=== PATIENT | female | born 1990 | race Caucasian/White ===

== ENCOUNTER → 2017-06-19 | Outpatient (CLI) | payer BC ==
[~2017-06-19] MED LIST: MTR600X PO; PRENTAB26 PO
[2017-06-19 09:36] LABS: BASO % 0.2 %; BASO ABS # 0.01 K/uL (0-0.2); COMPLETE YES; EOS % 5.3 %; HEMATOCRIT 42.2 % (37-47); LYMPH % 21.4 %; LYMPH ABS # 1.18 K/uL (1.2-3.4); MEAN CORPUSCULAR HEMOGLOBIN 31.4 pg (25-34); MEAN CORPUSCULAR HGB CONC 33.4 g/dl (32-36); MEAN PLATELET VOLUME 10.3 fL (7.4-10.4); MONO % 7.8 %; NEUT % 65.3 %; PLATELET COUNT 269 K/uL (130-400); RED BLOOD COUNT 4.49 M/uL (4.2-5.4); WHITE BLOOD COUNT 5.52 K/uL (4.8-10.8)
[2017-06-19 10:04] LABS: ALT/SGPT 25 U/L (12-78); AST/SGOT 14 U/L (15-37); BLOOD UREA NITROGEN 11 mg/dl (7-18); BUN/CREATININE RATIO 14.9 (10-20); CARBON DIOXIDE 26 mmol/L (21-32); CHLORIDE 106 mmol/L (98-107); CREATININE 0.77 mg/dl (0.60-1.20); GLUCOSE 99 mg/dl (70-99); POTASSIUM 4.3 mmol/L (3.5-5.1); SODIUM 139 mmol/L (136-145)
[2017-06-19 10:15] LABS: ALB/GLOB RATIO 0.8 (0.9-2); ALKALINE PHOSPHATASE 104 U/L (45-117); CHOLESTEROL 105 mg/dl (0-200); CHOLESTEROL/HDL RATIO 2.2; HDL CHOLESTEROL 47 mg/dl; LDL CHOLESTEROL CALCULATED 33 mg/dl; TRIGLYCERIDES 127 mg/dl (0-150); VERY LOW DENSITY LIPOPROT CALC 25 mg/dl
--- NOTE | 2017-06-27 06:03 | CODING QUERY NO DIAGNOSIS ---
TREATMENT RENDERED WITHOUT A DIAGNOSIS To promote full compliance with coding requirements relating to patient care, physician participation is requested in all cases of mapping engineer uncertainty. Please assist us with providing a diagnosis/symptom for the test(s) below: A diagnosis/symptom was not documented on your Order. A valid diagnosis/symptom is required to bill all insurances. Please remember that we are unable to code a diagnosis of rule out, probable, possible, questionable, or suspected. DATE OF SERVICE: 06/19/17 Tests that require a diagnosis: * CBC W/AUTOMATED DIFFERENTIAL DIAGNOSIS: * COMP. METABOLIC PROFILE DIAGNOSIS: * LIPID PANEL DIAGNOSIS: * FSH, SERUM DIAGNOSIS: * TSH DIAGNOSIS: * LH DIAGNOSIS: Provider Signature: Date: Thank you Rizwana Sneed [facility] [employer] Information Management Once completed, please kindly fax back to [phone] For questions please call [phone]
== END | disposition home or self-care (01) ==
LOC: C.LAB 08:02
PROVIDERS: ATTEND Neuromusculoskeletal Medicine & OMM
DX: E28.2 Polycystic ovarian syndrome (principal); L65.9 Nonscarring hair loss, unspecified

== ENCOUNTER 2021-08-12 16:17 | Inpatient (IN) ==
[2021-08-12] MEDS ORDERED: BETAMETH SOD PHOS/ACETATE IA 6 MG/ML IM STA (18:10)
[2021-08-12] MEDS ORDERED: LACTATED RINGER'S 1,000 ML IV PRN (18:10)
[2021-08-12] MEDS ORDERED: OXYTOCIN 30 UNITS/500 ML BAG IV PRN (18:10)
[2021-08-12] MEDS: LACTATED RINGER'S 1,000 ML IV PRN ×2 (18:23→19:46)
[2021-08-12] MEDS ORDERED: BETAMETH SOD PHOS/ACETATE IA 6 MG/ML ONE (18:30)
[2021-08-12 19:42] LABS: Hematocrit (blood only) 40.6 % (37-47); Hemoglobin 13.9 g/dL (12.0-16.0); Mean Corpuscular Hgb Conc 34.2 g/dL (32-36); Mean Corpuscular Volume 96.4 fL (80-100); RDW Coefficient of Variation 13.1 % (11.5-14.5); RDW Standard Deviation 45.8 fL (36.4-46.3); Red Blood Count 4.21 M/uL (4.2-5.4); White Blood Count 5.76 K/uL (4.8-10.8)
[2021-08-12] MEDS ORDERED: CITRIC ACID/SODIUM CITRATE 15 ML UDC ONE (19:51)
--- NOTE | 2021-08-12 19:56 | History & Physical Report ---
Date of Service August 12, 2021 Assessment & Plan (1) Oligomenorrhea: Plan: Leisa is a 30-year-old at 35 weeks 5 days gestational age admitted for more evaluation and monitoring for new finding of oligomenorrhea. She shortly after being admitted patient was noted have persistent tachycardia with intermittent D cells. Pap presents sedation with IV fluids was initiated with no improvement in status. Recommended that we proceed with a primary low transverse Caesarean section due to persisting category 2 tracing resistant to resuscitation measures. Consents for the procedure were reviewed and signed. Patient is also COVID positive and will consult Medicine Service to help with COVID managed. Patient is afebrile with O2 saturation in the low 90s. For patient has a persistent cough and mild shortness of breath. Patient was given 1 dose of betamethasone upon admission. (2) Non-reassuring electronic monitoring tracing: (3) Encounter for supervision of normal in multigravida: Admission and Anticipated Discharge Date Admission Date: August 12, 2021 History of Present Illness Primary Care Provider: Jamil Parra DO 30yo at 35.5 weeks GA. Presented for monitoring and evaluation for new finding of Oligo with DVP of 1.19cm on US today. was previously complicated by IUGR which resolved on growth US on 08/08 with EFW at 10% and AC at 20%. Normal UAD noted on 08/08. Patient COVID positive and mildly symptomatic at present. Patient was admitted to Labor and delivery for evaluation. Maternal medicine [facility] was contacted and patient discussed. They recommended betamethasone which had already been initiated. They recommended IV fluids and monitoring overnight with repeat amniotic fluid evaluation in the morning. Recommended if patient continued to have oligomenorrhea that they would recommend completion of the steroid course followed by delivery. After the patient was placed on the monitor she was noted have tachycardia IV bolus was initiated with no improvement of tachycardia. fetus was also noted to have intermittent prolonged decels and after resuscitation noted no improvement in monitoring status I recommended that we proceed with primary Caesarean section for are nonreassuring monitoring With persistent category 2 tracing. Recommendations were reviewed with patient her partner and consents reviewed and signed. Allergies Allergy/AdvReac Type Severity Reaction Status Date / Time No Known Allergies Allergy Verified 08/12/21 18:55 Home Medications Medication Instructions Recorded Confirmed Type ondansetron HCl 4 mg tablet 4 mg PO Q6H PRN #10 tab 08/10/21 08/12/21 Rx (Zofran) ferrous sulfate 325 mg (65 mg 325 mg 3XWK 08/12/21 08/12/21 History iron) tablet (Iron (ferrous sulfate)) prenat.vits,yamila,[id number] 1 tab PO DAILY 08/12/21 08/12/21 History Patient History Medical History (Updated 08/12/21 @ 20:02 by Tyrell Shultz MD) PCOS (polycystic ovarian syndrome) Pilonidal cyst Surgical History No pertinent past surgical history Family History Father Rheumatoid arthritis Denies family history of Ovarian cancer Prostate cancer Breast cancer Colorectal cancer Social History Smoking Status: Never smoker Tobacco Type: Cigarettes Second Hand Exposure: No; Hx Alcohol Use: Yes (Not during ) Alcohol type: hard liquor Alcohol Intake Frequency: 2-4 x/Month Hx Substance Use: No Preferred Language: [place]ican Communication Ability: Effective Visual Impairment: Limited Hearing Ability: Normal Heating Engineer Required: No Beliefs That Will Affect Care: None marital status: marital status details: Jose Alberto (30) [phone] Current Living Situation: Spouse and Family Current Living Situation Comment: Spouse and son. current occupational status: employed current occupation: leasing office property management How many Children do You have: 1 Other Information That Helps Us Care for You: No Feels Safe at Home: Yes Safety Concerns: Feels Safe At This Time Childhood Exposure to Second-Hand Smoke: Yes caffeine: Yes Dental Care, Regularly: Yes Physical Activity Frequency: 3-4 Times per Week Seatbelt Use: always Sunscreen Use: Yes Assistive Devices: Contacts Physical Exam Constitutional: WD/WN, vitals as above well developed, well nourished and + well hydrated; no acute distress ENMT: external ear and nose normal, oropharynx normal Neck: trachea midline, no thyromegaly Respiratory: normal respiratory effort, lungs clear to auscultation no respiratory distress, no labored breathing and no cough Cardiovascular: RRR, no murmur, no edema Heart Sounds: normal S1 and normal S2 Gastrointestinal (Abdomen): Percussion/Palpation: abdomen soft; abdomen nontender, no guarding and abdomen not rigid Musculoskeletal: no cyanosis or clubbing, extremities motor strength 5/5 Head/Neck/Chest: + head abnormal to inspection Skin: no rashes, warm and dry normal turgor Neurologic: PERRL, EOMI, accommodation nl, no face palsy, no dysarthria normal touch/pain/proprioception Psychiatric: A+Ox3, euthymic affect Apperance: appropriately dressed and appropriately groomed Genitourinary: Manual OB Exam: + cervical dilation 3 cm, + cervical effacement 70%, + station -2 and + amniotic fluid ( Negative for rupture on evaluation) OB Exam Monitor Tracing: + external FHT monitor used, + external uterine monitor used, + category II ( persistent tachycardia and intermittent prolonged decels), + normal FHT variability and + variable decelerations Results & Data ([facility]) Vital Signs (Past 12 Hours) Vital Signs Temp Pulse Pulse Resp BP BP Pulse Ox 08/12/21 19:53 99 H 93 08/12/21 19:52 95 H 95 08/12/21 19:47 103 H 95 08/12/21 19:41 109 H 92 08/12/21 19:29 97 H 132/56 L 08/12/21 19:28 39.4 C H 97 H 18 132/56 L 08/12/21 16:40 36.9 C 18 08/12/21 16:38 80 138/79 Code Status & VTE Plan VTE Prophylaxis Plan VTE Prophylaxis will be ordered: No Coding Level of Care Code None Diagnoses Oligomenorrhea N91.5 Non-reassuring electronic monitoring tracing O36.8390 Encounter for supervision of normal in multigravida Z34.80
[2021-08-12] MEDS ORDERED: MoRPHine SULFATE PF 1 MG/ML 10 ML AMP/VIAL ONE (20:29)
[2021-08-12 20:31] LABS: Mean Platelet Volume 11.6 fL (7.4-10.4); Platelet Count 75 K/uL (130-400)
[2021-08-12] MEDS ORDERED: fentaNYL citrate 100 MCG/2 ML VIAL ONE ×2 (20:53→20:54)
[2021-08-12] MEDS ORDERED: OXYTOCIN 10 UNITS/ML VIAL ONE (20:53)
[2021-08-12 21:19] LABS: Base Excess Cord Arterial Bld -6.4 mEq/L (-9-1.8); CO2 Cord Arterial Blood 52 mmHg (39.1-73.5); HCO3 Cord Arterial Blood 21 mmol/L (19.7-28.5); PO2 Cord Arterial Blood 10 mmHg (4.1-31.7); pH Cord Arterial Blood 7.23 (7.1-7.38)
[2021-08-12 21:20] LABS: Base Excess Cord Venous Blood -4.9 mEq/L (-7.7-1.9); Cord Venous Blood HCO3 21 mmol/L (18.4-26.8); Cord Venous Blood PCO2 43 mmHg (30.4-57.2); Cord Venous Blood PO2 19 mmHg (14.1-43.3); Cord Venous Blood pH 7.31 (7.20-7.44); Oxygen Sat Cord Arterial Blood < 60.0 % (<60)
[2021-08-12 21:21] LABS: O2 Saturation Cord Venous Bld < 60.0 % (<68)
--- NOTE | 2021-08-12 21:28 | Anesthesiology Consultation ---
Date of Service August 12, 2021 Assessment & Plan Chart Review Chart Review: Acceptable Risk for Surgery Consults Requested none History Surgery Operation Date: 08/12/21 20:45 Proposed Procedures p Section in LD - Tyrell Shultz MD Height/Weight Height: 5 ft 6 in Weight: 97 kg Allergies Allergy/AdvReac Type Severity Reaction Status Date / Time No Known Allergies Allergy Verified 08/12/21 18:55 Medications Home Medications Medication Instructions Recorded Confirmed Last Taken ondansetron HCl 4 mg tablet 4 mg PO Q6H PRN #10 tab 08/10/21 08/12/21 08/11/21 09:00 (Zofran) ferrous sulfate 325 mg (65 mg 325 mg 3XWK 08/12/21 08/12/21 08/11/21 21:00 iron) tablet (Iron (ferrous sulfate)) prenat.vits,yamila,[id number] 1 tab PO DAILY 08/12/21 08/12/21 08/11/21 21:00 Active Medications Generic Name Dose Route Start Last Admin Trade Name Freq PRN Reason Stop Dose Admin Lactated Ringer's 1,000 mls @ 125 mls/hr 08/12/21 16:58 08/12/21 19:46 Lr IV 09/11/21 16:57 250 mls/hr .Q8H PRN Administration L&D Protocol Protocol Past Medical History Medical History (Updated 08/12/21 @ 20:02 by Tyrell Shultz MD) PCOS (polycystic ovarian syndrome) Pilonidal cyst Past Family History Family History Father Rheumatoid arthritis Denies family history of Ovarian cancer Prostate cancer Breast cancer Colorectal cancer Past Surgical History Surgical History No pertinent past surgical history Social History Smoking Status: Never smoker Hx Alcohol Use: Yes (Not during ) Alcohol type: hard liquor Hx Substance Use: No substance use type: does not use Physical Exam Vital Signs Last Vital Signs Temp 39.4 C H 08/12/21 19:28 Pulse 90 08/12/21 20:22 Resp 18 08/12/21 19:28 BP 132/56 L 08/12/21 19:29 Pulse Ox 95 08/12/21 20:22 Testing Laboratory Results 08/12/21 18:43 Blood Type A Positive 08/12/21 18:43 Antibody Screen NEGATIVE 08/12/21 18:43
[2021-08-12] MEDS ORDERED: ONDANSETRON INJ 2 MG/ML 2 ML VIAL ONE (21:35)
[2021-08-12] MEDS ORDERED: NALBUPHINE HCL INJ 10 MG/ML AMP IV PRN (21:45)
[2021-08-12] MEDS ORDERED: DC INTRASPINAL MORPHINE SCH (21:45)
[2021-08-12] MEDS ORDERED: NALOXONE HCL 0.08 MG in SYRINGE 1.8 ML IV PRN (21:45)
[2021-08-12] MEDS ORDERED: NALOXONE HCL 1 MG in SODIUM CHLORIDE 0.9% 1000ML 1,000 ML IV PRN (21:45)
[2021-08-12] MEDS ORDERED: NO NARCOTICS OR SEDATIVES SCH (21:45)
[2021-08-12] MEDS ORDERED: ePHEDrine sulfate 50 MG/ML AMP IV PRN ×2 (21:45→21:46)
[2021-08-12] MEDS ORDERED: MoRPHine SULFATE PF 1 MG/ML 10 ML AMP/VIAL INT SPINAL ONE (21:45)
[2021-08-12] MEDS ORDERED: SODIUM CHLORIDE 0.9% 1000ML 1,000 ML IV SCH (21:45)
[2021-08-12] MEDS ORDERED: NALOXONE HCL 0.4 MG/1 ML VIAL/CARP IV PRN (21:45)
[2021-08-12] MEDS ORDERED: LACTATED RINGER'S 500 ML IV PRN (21:45)
[2021-08-12] MEDS ORDERED: diphenhydrAMINE 50 MG/ML VIAL IV PRN (21:45)
[2021-08-12] MEDS ORDERED: HYDROmorphone INJ 2 MG/ML SYR/VIAL IV PRN (21:46)
[2021-08-12] MEDS ORDERED: ATROPINE SULFATE 0.1 MG/ML 10ML SYR IV PRN (21:46)
[2021-08-12] MEDS ORDERED: fentaNYL citrate 100 MCG/2 ML VIAL IV PRN (21:46)
[2021-08-12] MEDS ORDERED: HYDROCORTISONE ACETATE 25 MG SUPP PR PRN (21:49)
[2021-08-12] MEDS ORDERED: BENZOCAINE 20% AER SPR 82.5 GM CAN EXT PRN (21:49)
[2021-08-12] MEDS ORDERED: SENNA 8.6 MG TAB PO PRN (21:49)
[2021-08-12] MEDS ORDERED: SUPERCREAM 0.870% 15 GM JAR EXT PRN (21:49)
[2021-08-12] MEDS ORDERED: DIPHTHERIA/TETANUS/PERTUSSIS 0.5 ML SYR/VIAL IM ONE (21:49)
[2021-08-12] MEDS ORDERED: MAGNESIUM HYDROXIDE SUSP 30 ML UDC PO PRN (21:49)
[2021-08-12] MEDS ORDERED: KETOROLAC 30 MG/ML VIAL IV PRN (21:49)
--- NOTE | 2021-08-12 22:02 | Post Operative Brief Note ---
PG Immediate Post Op with CF Date of Surgery August 12, 2021 Pre & Post Diagnosis Operation Date: 08/12/21 20:45 Pre-Op Diagnosis: Oligohydramnios Non Reassuring heart tones Post-Op Diagnosis: Oligohydramnios Non Reassuring heart tones Delivery of live female child at 2050 I identified the patient and participated in the time-out.: Yes Procedure Operation Date: 08/12/21 20:45 Actual Procedures p Section in LD - Tyrell Shultz MD Surgeon Tyrell Shultz MD Coroner Forensic Technician Dr Henriquez Estimated Blood Loss 700 Findings Consistent with Post-Op Diagnosis Specimens Specimen Description: Placeta-exam cord blood cord blood gases Drains Laureano Catheter
[2021-08-12] MEDS: LACTATED RINGER'S 1,000 ML IV SCH (22:17)
--- NOTE | 2021-08-12 22:24 | Hospitalist Consultation ---
Date of Consultation August 12, 2021 Assessment & Plan (1) Pneumonia due to COVID-19 virus: Previously well 30 yo F post-op from emergent C/S, seen in consultation for symptomatic COVID19 infection. COVID19 Pneumonia, Moderate - moderate disease: - CXR with L>R infiltrates in line with COVID19 diagnosis. - no persistent oxygen requirement, however O2 sats hover in 92-94 range, drop to high 80s and return to normal. Unsure if this correlates with exertion/c oughing/speaking. - thrombocytopenia likely secondary to infection. CMP pending. - would qualify for monoclonal antibodies based on status and mild to moderate disease - High risk for DVT/PE formation in setting of + COVID. CTA ordered for evaluation of PE given persistent sinus Tach and high risk. if negative, Given mild/moderate disease and being immediately post-op, can keep SCDs and encourage ambulation. If worsening sx without PE, will likely require heparin for high risk prophylaxis. - Fever likely secondary to COVID19, but differential includes endometritis/postop fever etc. will continue to monitor. - Supportive care: - incentive spirometry - guaifensin - tylenol for fevers Will continue to follow. Else per primary OB team. DVT ppx: SCDs FEN/GI: Regular OB diet Code Status: Full Dispo: negative pressure OB room (2) S/P : (3) Thrombocytopenia: Supervising Physician Co-Signing Physician Notes Attending addendum: I have supervised the medical residents activities, and agree with the H&P unless as otherwise noted. Assessment and Plan: Pneumonia due to COVID-19 virus- Multifocal pneumonia on chest x-ray In the peripartum state would target pulse ox to be 94-95%, with oxygen supplementation as needed CT angiography PE protocol Incentive spirometry Guaifenesin extended release 1200 mg p.o. twice daily Acetaminophen 650 mg p.o. every 6 hours as needed mild pain or fever Follow thrombocytopenia serial laboratories, further management depends upon follow-up laboratories Xopenex high flow nebulizer every 2 hours as needed if symptoms warrant Further management suggestions as studies result History of Present Illness Reason for Consultation: symptomatic COVID19 Requesting Physician: Tyrell Shultz MD Attending Physician: Renny Ferrell History of Present Illness Leisa is a 30 yo F at 35w5d admitted for monitoring of oligomenorrhea, now s/p for non-reassuring heart tracings. Consult from OB requested for management of COVID19 infection. She states she started feeling chills and somewhat sick approximately 4 days ago, was seen by her physician who ordered a covid test, which was positive on 08/08. She's had a cough for a few months and denies much change in that in the last few days. She has a 1/2 pack x 10 year smoking history but denies smoking during . She does attest to having on and off chills in the past few days, headaches, but denies any fevers (until earlier this evening). She has not received [id number], has received the influenza vaccine. She denies any hx of pulmonary disease, use of inhalers, other chronic medical conditions. Says hx of anemia is new, was started on iron tab 3x/week. no hx of thrombocytopenia/bleeding disorders. COVID19 workup ordered including: CXR, CMP, Troponin. Vitals and chart reviewed. Allergies Allergy/AdvReac Type Severity Reaction Status Date / Time No Known Allergies Allergy Verified 08/12/21 18:55 Home Medications Medication Instructions Recorded Confirmed Type ondansetron HCl 4 mg tablet 4 mg PO Q6H PRN #10 tab 08/10/21 08/12/21 Rx (Zofran) ferrous sulfate 325 mg (65 mg 325 mg 3XWK 08/12/21 08/12/21 History iron) tablet (Iron (ferrous sulfate)) prenat.vits,yamila,[id number] 1 tab PO DAILY 08/12/21 08/12/21 History Patient History Medical History (Updated 08/13/21 @ 08:32 by Tyrell Shultz MD) PCOS (polycystic ovarian syndrome) Pilonidal cyst Surgical History (Updated 08/12/21 @ 23:30 by Shanika Ramirez MD) No pertinent past surgical history Family History Father Rheumatoid arthritis Denies family history of Ovarian cancer Prostate cancer Breast cancer Colorectal cancer Social History (Updated 08/12/21 @ 23:25 by Shanika Ramirez MD) Smoking Status: Former smoker Tobacco Type: Cigarettes packs per day: 0.5; Years Smoked: 11; Second Hand Exposure: No; Hx Alcohol Use: Yes (Not during ) Alcohol type: hard liquor Alcohol Intake Frequency: 2-4 x/Month Hx Substance Use: No Preferred Language: Serbian Communication Ability: Effective Visual Impairment: Limited Hearing Ability: Normal Bath Solution Maker Required: No Beliefs That Will Affect Care: None marital status: marital status details: Jose Alberto (30) [phone] Current Living Situation: Spouse and Family Current Living Situation Comment: Spouse and son. 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 How many Children do You have: 1 Other Information That Helps Us Care for You: No Feels Safe at Home: Yes Safety Concerns: Feels Safe At This Time Childhood Exposure to Second-Hand Smoke: Yes caffeine: Yes Dental Care, Regularly: Yes Physical Activity Frequency: 3-4 Times per Week Seatbelt Use: always Sunscreen Use: Yes Assistive Devices: None Review of Systems Constitutional: + fever, + chills and + malaise; no sweats, no body aches and no weakness Respiratory: + cough; no dyspnea on exertion and no pain on inspiration Cardiovascular: no chest pain and no palpitations Gastrointestinal: + nausea; no vomiting Neurologic: + headache(s) Physical Exam Physical Exam: Constitutional: obese, in no apparent distress, sitting comfortably in bed. Eyes: EOMI, pupils equal and reactive bilaterally, no scleral icterus Cardiac: tachycardic, regular rhythm, no murmurs, gallops or rubs. Normal S1, S2 Pulm:decreased breath sounds in left compared to right lung, poor inspiratory effort, no focal wheezing, crackles. Some rhonchorous breath sounds that improve with coughing. Results & Data Results & Data ([facility]) Vital Signs (Past 12 Hours) Vital Signs Temp Pulse Pulse Resp BP BP Pulse Ox 08/12/21 22:23 93 H 94 08/12/21 22:20 112 H 94 08/12/21 22:16 106 H 130/61 94 08/12/21 22:15 103 H 92 08/12/21 22:11 111 H 86 L 08/12/21 22:10 112 H 94 08/12/21 22:06 101 H 145/60 H 08/12/21 22:05 100 H 94 08/12/21 22:00 95 H 132/65 86 L 08/12/21 21:57 102 H 169/74 H 94 08/12/21 21:55 95 H 90 08/12/21 21:52 95 H 93 08/12/21 21:50 92 H 96 08/12/21 21:45 102 H 86 L 08/12/21 21:44 88 164/60 H 08/12/21 21:40 37.2 C 94 H 18 169/74 H 92 08/12/21 20:22 90 95 08/12/21 20:17 97 H 93 08/12/21 20:16 92 H 94 08/12/21 20:12 89 93 08/12/21 20:11 100 H 94 08/12/21 20:07 89 94 08/12/21 20:05 92 H 94 08/12/21 20:02 89 93 08/12/21 19:59 94 H 94 08/12/21 19:57 93 H 94 08/12/21 19:53 99 H 93 08/12/21 19:52 95 H 95 08/12/21 19:47 103 H 95 08/12/21 19:41 109 H 92 08/12/21 19:29 97 H 132/56 L 08/12/21 19:28 39.4 C H 97 H 18 132/56 L 08/12/21 16:40 36.9 C 18 08/12/21 16:38 80 138/79 Laboratory Results Laboratory Results WBC 5.76 K/uL (4.8-10.8) 08/12/21 18:43 RBC 4.21 M/uL (4.2-5.4) 08/12/21 18:43 Hgb 13.9 g/dL (12.0-16.0) 08/12/21 18:43 Hct 40.6 % (37-47) 08/12/21 18:43 MCV 96.4 fL (80-100) 08/12/21 18:43 MCH 33.0 pg (25-34) 08/12/21 18:43 MCHC 34.2 g/dL (32-36) 08/12/21 18:43 RDW Std Deviation 45.8 fL (36.4-46.3) 08/12/21 18:43 RDW Coeff of [place] 13.1 % (11.5-14.5) 08/12/21 18:43 Plt Count 75 K/uL (130-400) L 08/12/21 18:43 MPV 11.6 fL (7.4-10.4) H 08/12/21 18:43 Cord ABG pH 7.23 (7.1-7.38) 08/12/21 20:51 Cord ABG pCO2 52 mmHg (39.1-73.5) 08/12/21 20:51 Cord ABG pO2 10 mmHg (4.1-31.7) 08/12/21 20:51 Cord ABG HCO3 21 mmol/L (19.7-28.5) 08/12/21 20:51 Cord ABG Base Excess -6.4 mEq/L (-9-1.8) 08/12/21 20:51 Cord ABG O2 Sat < 60.0 % (<60) 08/12/21 20:51 Cord VBG pH 7.31 (7.20-7.44) 08/12/21 20:51 Cord VBG pCO2 43 mmHg (30.4-57.2) 08/12/21 20:51 Cord VBG pO2 19 mmHg (14.1-43.3) 08/12/21 20:51 Cord VBG HCO3 21 mmol/L (18.4-26.8) 08/12/21 20:51 Cord VBG Base Excess -4.9 mEq/L (-7.7-1.9) 08/12/21 20:51 Cord VBG O2 Sat < 60.0 % (<68) 08/12/21 20:51 Barometric Pressure 731.5 mm/Hg 08/12/21 20:51 Barometric Pressure 731.5 mm/Hg 08/12/21 20:51 Blood Gas Comments A 08/12/21 20:51 Blood Gas Comments INFANT A 08/12/21 20:51 Blood Type A Positive 08/12/21 18:43 Antibody Screen NEGATIVE 08/12/21 18:43 Impressions Chest X-Ray 08/12/21 22:09 XR chest 1V portable CLINICAL HISTORY: hypoxia, COVID -19 TECHNIQUE: Single frontal radiograph of the chest was obtained. Comparison: None available at the time of this dictation. FINDINGS: No lines and tubes are seen. The cardiomediastinal silhouette is normal. Multifocal airspace opacities are seen, left greater than right. No evidence of pleural effusion or pneumothorax. IMPRESSION: Multifocal airspace opacities compatible with history of viral pneumonia. ACT 112: Negative or not required by law. Electronically signed by: Piotr Lopez M.D. 08/12/2021 10:29 PM Resident Activity Tracking Resident Involvement: Resident Care Provided Care Provided: Adult Hospital Medicine
--- NOTE | 2021-08-12 22:30 | XRay Report ---
XR chest 1V portable CLINICAL HISTORY: hypoxia, COVID -19 TECHNIQUE: Single frontal radiograph of the chest was obtained. Comparison: None available at the time of this dictation. FINDINGS: No lines and tubes are seen. The cardiomediastinal silhouette is normal. Multifocal airspace opacitie s are seen, left greater than right. No evidence of pleural effusion or pneumothorax. IMPRESSION: Multifocal airspace opacities compatible with history of viral pneumonia. ACT 112: Negative or not required by law. Electronically signed by: Piotr Lopez M.D. 08/12/2021 10:29 PM
--- NOTE | 2021-08-12 22:59 | Operative Report (OR) ---
DATE OF PROCEDURE: 08/12/2021 PROCEDURE: Primary low transverse section. PREOPERATIVE DIAGNOSES: 1. Single at 35 weeks 5 days gestational age. 2. Oligohydramnios. 3. Growth restriction. 4. Persistent category 2 tracing, nonreassuring monitoring. 5. Symptomatic COVID positive. POSTOPERATIVE DIAGNOSES: 1. Single at 35 weeks 5 days gestational age. 2. Oligohydramnios. 3. Growth restriction. 4. Persistent category 2 tracing, nonreassuring monitoring. 5. Symptomatic COVID positive. 6. Status post procedure. ESTIMATED BLOOD LOSS: 700 mL. DRAINS: Laureano catheter. FLUIDS: Continuous lactated Ringer. URINE OUTPUT: Per Laureano catheter. COMPLICATIONS: None. FINDINGS: Viable female infant with weight and Apgars pending. INDICATIONS: Leisa is a 30-year-old G2, P1, admitted at 35 weeks 5 days gestational age after being sent from clinic for evaluation and monitoring for new diagnosis of oligohydramnios in the setting of IUGR. The patient was noted to have tachycardia after being placed on the monitor. She was given an IV bolus and resuscitation measures were initiated. At first, it appeared that some response was occurring. However, after continued monitoring, heart rate was noted to go back up to the 180s. Intermittent prolonged decels were also noted and at that time, we discussed emergent delivery for persistent category 2 tracing resistant to resuscitation measures. The patient was agreeable to the delivery plan, and consents for a primary low transverse section were reviewed and signed. DESCRIPTION OF PROCEDURE: The patient was taken to the operating room after consents were ensured. Upon presentation, she was properly identified. Spinal anesthesia was obtained without difficulty. The patient was then prepped and draped in normal sterile fashion. Preprocedure timeout was performed. A Pfannenstiel incision was then made with a knife. This was carried down to underlying fascia with the Bovie. The fascia was then nicked at the midline with a knife and extended laterally in each direction with pickleonides and Jorge scissors. The superior aspect of the fascia was grasped with Kochers x2, elevated off the underlying rectus muscles using blunt dissection. The inferior aspect of the fascia was then grasped with Kochers x2, elevated off the underlying rectus muscles using blunt dissection. The midline was then entered bluntly, placed on stretch to provide adequate room for delivery. A bladder blade was inserted. A bladder flap was created. A low transverse uterine incision was then initiated with a knife and then the uterine cavity was then entered bluntly and placed on stretch to provide adequate room for delivery. Head of the was noted to be in cephalic position, delivered through the hysterotomy without difficulty. Body and shoulders quickly followed. was noted to have good tone upon delivery and an attempt at delayed cord clamping was performed, although the was not noted to be vigorous and the cord was double clamped and cut. taken over to the waiting nursery staff. A cord segment and cord blood was obtained. Attention was then turned to delivery of the placenta, which was delivered intact, 3-vessel cord, gentle cord traction and uterine massage. The uterus was exteriorized. Several passes were made to remove any remaining membranes with a dry lap. The hysterotomy was then reapproximated with 0 Vicryl continuous running locked stitch. A second imbricating layer was performed. Several [id number]-[id number]-[id number] stitches were needed to provide adequate hemostasis. The posterior cul-de-sac was then cleaned of clots and debris. The uterus was returned to the maternal abdomen. Right and left paracolic gutters were cleaned of clots and debris, and the hysterotomy was then reinspected and noted to be hemostatic. The space of Retzius, subcutaneous and muscle layers were all inspected and noted to be hemostatic. The fascia was then reapproximated with 0 Vicryl continuous running stitch. Subcutaneous layers were reapproximated with 2-0 plain in a continuous running stitch. The skin was reapproximated with 3-0 Vicryl in a subcuticular stitch with a Manuelito needle. Needle, sponge, and instrument counts were correct at the completion of the case. Both mother and were stable in the immediate post-delivery period. Job ID: [id number] [facility]
[2021-08-12] MEDS: KETOROLAC 30 MG/ML VIAL IV PRN (23:46)
[2021-08-12 23:49] LABS: Alanine Aminotransferase 41 (12-78); Albumin Level 1.8 gm/dl (3.4-5.0); Aspartate Aminotransferase 63 U/L (15-37); Blood Urea Nitrogen 9 mg/dl (7-18); Calcium 7.5 mg/dl (8.5-10.1); Carbon Dioxide 23 mmol/L (21-32); Chloride 104 mmol/L (98-107); Creatinine Clr Calc Pharmacy 177.2 ml/min; Est GFR (African American) 145.7 ml/min; Est GFR (Non-African American) 125.7 ml/min; Glucose 113 mg/dl (70-99); Potassium 3.4 mmol/L (3.5-5.1); Sodium 135 mmol/L (136-145)
[2021-08-12] MEDS: OXYTOCIN 20 UNITS in LACTATED RINGER'S 1,000 ML IV SCH (23:50)
[2021-08-12 23:54] LABS: Albumin Globulin Ratio 0.5 (0.9-2); Alkaline Phosphatase 313 U/L (45-117); Bilirubin,Total 0.3 mg/dl (0.2-1); Globulin 3.3 gm/dl (2.5-4.0); Total Protein 5.1 gm/dl (6.4-8.2); Troponin I < 0.015 ng/ml (0-0.045)
--- NOTE | 2021-08-13 00:59 | Anesthesiology Progress Note ---
Date of Service August 13, 2021 Anesthesia Post Procedure Vital Signs Vital Signs: Temp Pulse Pulse Resp BP BP Pulse Ox 08/13/21 00:00 92 H 91 08/12/21 23:55 94 H 91 08/12/21 23:51 85 123/60 08/12/21 23:50 87 89 L 08/12/21 23:47 98 H 93 08/12/21 23:45 91 H 89 L 08/12/21 23:40 97 H 94 08/12/21 23:38 94 H 94 08/12/21 23:35 94 H 89 L 08/12/21 23:31 110 H 106/56 L 08/12/21 23:30 109 H 92 08/12/21 23:25 101 H 91 08/12/21 23:20 98 H 91 08/12/21 23:16 100 H 88 L 08/12/21 23:15 96 H 93 08/12/21 23:11 96 H 122/65 08/12/21 23:10 99 H 93 08/12/21 23:05 102 H 93 08/12/21 23:00 99 H 93 08/12/21 22:56 98 H 137/67 08/12/21 22:55 96 H 91 08/12/21 22:51 113 H 92 08/12/21 22:50 110 H 93 08/12/21 22:46 115 H 133/70 08/12/21 22:45 111 H 94 08/12/21 22:40 109 H 92 08/12/21 22:39 112 H 94 08/12/21 22:37 117 H 128/68 08/12/21 22:35 114 H 91 08/12/21 22:33 113 H 91 08/12/21 22:30 115 H 96 08/12/21 22:28 117 H 85 L 08/12/21 22:25 108 H 93 08/12/21 22:23 93 H 94 08/12/21 22:20 112 H 94 08/12/21 22:16 106 H 130/61 94 08/12/21 22:15 103 H 92 08/12/21 22:11 111 H 86 L 08/12/21 22:10 112 H 94 08/12/21 22:06 101 H 145/60 H 08/12/21 22:05 100 H 94 08/12/21 22:00 95 H 132/65 86 L 08/12/21 21:57 102 H 169/74 H 94 08/12/21 21:55 95 H 90 08/12/21 21:52 95 H 93 08/12/21 21:50 92 H 96 08/12/21 21:45 102 H 86 L 08/12/21 21:44 88 164/60 H 08/12/21 21:40 37.2 C 94 H 18 169/74 H 92 08/12/21 20:22 90 95 08/12/21 20:17 97 H 93 08/12/21 20:16 92 H 94 08/12/21 20:12 89 93 08/12/21 20:11 100 H 94 08/12/21 20:07 89 94 08/12/21 20:05 92 H 94 08/12/21 20:02 89 93 08/12/21 19:59 94 H 94 08/12/21 19:57 93 H 94 08/12/21 19:53 99 H 93 08/12/21 19:52 95 H 95 08/12/21 19:47 103 H 95 08/12/21 19:41 109 H 92 08/12/21 19:29 97 H 132/56 L 08/12/21 19:28 39.4 C H 97 H 18 132/56 L 08/12/21 16:40 36.9 C 18 08/12/21 16:38 80 138/79 Pain Intensity Back: Pain Intensity: 7 Transfer of Care Handoff Completed per policy Notes Mental Status: alert / awake / arousable and participated in evaluation Patient Amnestic to Procedure: Yes Nausea / Vomiting: adequately controlled Pain: adequately controlled Airway Patency, RR, SpO2: stable & adequate BP & HR: stable & adequate Hydration State: stable & adequate Neuraxial Anesthesia: was administered and sensory block is resolving Anesthetic Complications: no major complications apparent
[2021-08-13] MEDS ORDERED: OPTIRAY 320 125ml IV ONE (01:05)
[2021-08-13] MEDS: ALBUTEROL HFA 8 GM INHALER INH SCH ×3 (01:30→07:01)
[2021-08-13] MEDS: ONDANSETRON INJ 2 MG/ML 2 ML VIAL IV PRN ×2 (01:36→08:38)
[2021-08-13] MEDS: KETOROLAC 30 MG/ML VIAL IV PRN (05:25)
[2021-08-13 06:50] LABS: Basophils # (auto) 0.01 K/uL (0-0.2); Basophils % (auto) 0.1 %; Hematocrit (blood only) 26.8 % (37-47); Hemoglobin 9.3 g/dL (12.0-16.0); Immature Granulocytes # (auto) 0.02 K/uL (0.00-0.02); Immature Granulocytes % (auto) 0.3 %; Lymphocytes # (auto) 0.43 K/uL (1.2-3.4); Lymphocytes % (auto) 5.5 %; Mean Corpuscular Hemoglobin 33.5 pg (25-34); Mean Corpuscular Hgb Conc 34.7 g/dL (32-36); Mean Corpuscular Volume 96.4 fL (80-100); Mean Platelet Volume 10.8 fL (7.4-10.4); Monocytes # (auto) 0.14 K/uL (0.11-0.59); Monocytes % (auto) 1.8 %; Neutrophils # (auto) 7.15 K/uL (1.4-6.5); Neutrophils % (auto) 92.3 %; Platelet Count 87 K/uL (130-400); RDW Coefficient of Variation 13.3 % (11.5-14.5); RDW Standard Deviation 46.6 fL (36.4-46.3); Red Blood Count 2.78 M/uL (4.2-5.4); White Blood Count 7.75 K/uL (4.8-10.8)
--- NOTE | 2021-08-13 08:26 | CT Scan Report ---
CT angio chest w con CLINICAL HISTORY: Chest pain and shortness of breath. Covid positive. Evaluate for pulmonary embolus COMPARISON STUDY: Portable chest from 08/12/2021 CT DOSE: 649.44 mGy.cm TECHNIQUE: CT Angio of the chest was performed.followed by image post processing with coronal, and s agittal MIP reformats. Contrast Volume: Optiray 320, 119 ml FINDINGS: Vasculature: There is homogeneous perfusion of the pulmonary vasculature bilaterally. No intraluminal filling defects or evidence for pulmonary embolus is seen. Airway: The airway is clear. No endobronchial lesion is identified. Lungs: Extensive groundglass opacities are present throughout both lungs characteristic of a viral ty pe pneumonitis and Covid 19 pneumonia. The lungs are otherwise clear of confluent alveolar opacities, air bronchograms or pulmonary nodules. Pleura: There is no evidence for pleural effusion. There is no evidence for pneumothorax. Mediastinum: There is no evidence for pathologic adenopathy. The heart size is within normal limits. The thoracic aorta is within normal limits. There is no evidence for pericardial effusion. Upper abdomen:There is free intraperitoneal air under the hemidiaphragm anterior to the liver. The fi ndings are characteristic of perforated viscus. Follow-up CT of the abdomen and pelvis is recommended . Osseous structures: There is no acute osseous pathology. Impression: 1. No CTA evidence for pulmonary embolus. 2. Extensive groundglass opacities are present throughout both lungs characteristic of a viral type p neumonitis and Covid 19 pneumonia. 3. Free intraperitoneal air under the hemidiaphragms anterior to the liver characteristic of a bowel perforation. Follow-up CT of the abdomen and pelvis is recommended. These results were provided on the initial reading. ACT 112: Positive. There are findings on this exam that require communication between the performing entity and the patient following Patient Test Result Information Act ([place] Act 112) guidelines. Electronically signed by: Scout Gleason M.D. 08/13/2021 8:24 AM
[2021-08-13] MEDS: PRENATAL VITAMIN 1 TAB PO SCH (08:37)
[2021-08-13] MEDS: SIMETHICONE 80 MG CHEW PO SCH ×4 (08:38→21:09)
[2021-08-13] MEDS: FERROUS SULFATE 325 MG TAB PO SCH (08:38)
[2021-08-13] MEDS: DOCUSATE SODIUM 100 MG CAP PO SCH ×2 (08:38→21:10)
--- NOTE | 2021-08-13 08:38 | Obstetrical Progress Note ---
Date of Service August 13, 2021 Assessment & Plan (1) Pneumonia due to COVID-19 virus: 30yo day 1 s/p pLTCS. Meeting post operative goals. Mildly symptomatic from COVID. Continue COVID management per Medicine team. Noted to have low platelets and mildly elevated liver enzymes yesterday. Liver enzymes below threshold for PIH diagnosis and likely COVID related. Had a few elevated BP yesterday but normal since delivery. Platelets mildly improved today. Will order morning CMP and CBC tomorrow. CTA was read as air under diaphragm. Patient is post and free air under diaphragm would be expected. Not signs or symptoms of bowel perforation and no concern for bowel injury during surgery. Will continue to monitor. (2) S/P : (3) Encounter for care and examination after delivery: Subjective Ambulation: limited ambulation (Laureano in place) Voiding: no voiding problems Passing Gas:: Yes Diet Tolerance:: clear liquids Lochia:: Small Current Pain Level(1-10): 2 Mild COVID symptoms. Denies PIH symptoms Physical Exam Constitutional WD/WN, vitals as above Respiratory normal respiratory effort; no respiratory distress and no labored breathing Gastrointestinal (Abdomen) Inspection/Auscultation: abdomen normal to inspection; abdomen not distended Percussion/Palpation: abdomen soft; abdomen nontender, no guarding and abdomen not rigid Genitourinary OB Exam Abdomen: + fundal height Fundus: + firm and + relation to umbilicus (Below); not tender or not boggy Results & Data ([facility]) Vital Signs (Past 12 Hours) Vital Signs Temp Pulse Pulse Resp BP BP Pulse Ox 08/13/21 06:36 16 96 08/13/21 06:25 18 96 08/13/21 04:25 36.6 C 76 18 90/54 L 94 08/13/21 03:15 16 96 08/13/21 02:18 36.9 C 86 18 109/68 96 08/13/21 01:00 36.9 C 91 H 18 106/68 96 08/13/21 00:00 92 H 91 08/12/21 23:55 94 H 91 08/12/21 23:51 85 123/60 08/12/21 23:50 87 89 L 08/12/21 23:47 98 H 93 08/12/21 23:45 91 H 89 L 08/12/21 23:40 97 H 94 08/12/21 23:38 94 H 94 08/12/21 23:35 94 H 89 L 08/12/21 23:31 110 H 106/56 L 08/12/21 23:30 109 H 92 08/12/21 23:25 101 H 91 08/12/21 23:20 98 H 91 08/12/21 23:16 100 H 88 L 08/12/21 23:15 96 H 93 08/12/21 23:11 96 H 122/65 08/12/21 23:10 99 H 93 08/12/21 23:05 102 H 93 08/12/21 23:00 99 H 93 08/12/21 22:56 98 H 137/67 08/12/21 22:55 96 H 91 08/12/21 22:51 113 H 92 08/12/21 22:50 110 H 93 08/12/21 22:46 115 H 133/70 08/12/21 22:45 111 H 94 08/12/21 22:40 109 H 92 08/12/21 22:39 112 H 94 08/12/21 22:37 117 H 128/68 08/12/21 22:35 114 H 91 08/12/21 22:33 113 H 91 08/12/21 22:30 115 H 96 08/12/21 22:28 117 H 85 L 08/12/21 22:25 108 H 93 08/12/21 22:23 93 H 94 08/12/21 22:20 112 H 94 08/12/21 22:16 106 H 130/61 94 08/12/21 22:15 103 H 92 08/12/21 22:11 111 H 86 L 08/12/21 22:10 112 H 94 08/12/21 22:06 101 H 145/60 H 08/12/21 22:05 100 H 94 08/12/21 22:00 95 H 132/65 86 L 08/12/21 21:57 102 H 169/74 H 94 08/12/21 21:55 95 H 90 08/12/21 21:52 95 H 93 08/12/21 21:50 92 H 96 08/12/21 21:45 102 H 86 L 08/12/21 21:44 88 164/60 H 08/12/21 21:40 37.2 C 94 H 18 169/74 H 92
[2021-08-13] MEDS: OXYTOCIN 20 UNITS in LACTATED RINGER'S 1,000 ML IV SCH (08:52)
[2021-08-13] MEDS: LACTATED RINGER'S 1,000 ML IV SCH (08:59)
[2021-08-13 09:19] LABS: Albumin Globulin Ratio 0.5 (0.9-2); Albumin Level 1.7 gm/dl (3.4-5.0); BUN Creatinine Ratio 20.5 (10-20); Bilirubin,Total 0.4 mg/dl (0.2-1); Calcium 7.7 mg/dl (8.5-10.1); Creatinine Clr Calc Pharmacy 156.9 ml/min; Est GFR (Non-African American) 120.8 ml/min; Globulin 3.4 gm/dl (2.5-4.0); Total Protein 5.1 gm/dl (6.4-8.2)
[2021-08-13] MEDS: guaiFENesin 600 MG TABCR PO SCH ×2 (10:09→21:10)
[2021-08-13] MEDS ORDERED: ALBUTEROL HFA 8 GM INHALER INH PRN (11:10)
[2021-08-13] MEDS ORDERED: diphenhydrAMINE 50 MG/ML VIAL IV PRN (15:45)
[2021-08-13] MEDS ORDERED: PROMETHAZINE HCL 25 MG in SODIUM CHLORIDE 0.9% 50 ML IV PRN (15:45)
[2021-08-13] MEDS ORDERED: diphenhydrAMINE Capsule 25 MG CAP PO PRN (15:45)
[2021-08-13] MEDS: oxyCODONE/ACETAMINOPHEN 5mg/325mg TAB PO PRN (16:46)
[2021-08-13] MEDS ORDERED: AMMONIA, AROMATIC INHAL 1 EA AMP INH ONE (16:49)
[2021-08-13] MEDS ORDERED: bisacodyL 5 MG TABEC PO SCH (20:00)
--- NOTE | 2021-08-13 20:27 | Billing Data ---
Date of Service August 13, 2021 Coding Level of Care Code 30124 Inpt Consult Level 3
[2021-08-13] MEDS: IBUPROFEN 600 MG TAB PO PRN (21:11)
--- NOTE | 2021-08-13 21:25 | Hospitalist Progress Note ---
Date of Service August 13, 2021 Assessment & Plan (1) Pneumonia due to COVID-19 virus: Plan: b/l pneumonia on CTA chest. moderate amount of infiltrates but fortunately she remains stable from a pulmonary standpoint -- o2 sats >95% in RA, mild cough only, etc. Continue pulmonary toilet - encouraged flutter valve and incentive spirometry use. Continue mucinex. If any developing hypoxia would then be candidate for dexamethasone & Remdesivir. (2) S/P : Plan: POD #1 s/p . Doing well from ob standpoint. (3) Thrombocytopenia: Plan: Likely 2nd to COVID illness. This is typically self-limiting and resolves within a week or two. Repeat CBC am for stability. (4) Abnormal LFTs: Plan: Likely 2nd to COVID illness. Like #3 it is typically self-limiting. Repeat LFTs in am for stability. (5) DVT prophylaxis: Plan: SCDs for now. Low threshold for chemical DVT proph (lovenox). Plan: Will continue to follow. Admission and Anticipated Discharge Date Admission Date: August 12, 2021 Subjective pt reports mild cough but no dyspnea main complaint is that of fatigue no headache no myalgias or arthralgias mild abdominal bloating but no nausea/emesis/diarrhea COVID symptoms started earlier this week - perhaps Sunday with chills Review of Systems Review of Systems: gen - no chills HEENT - no loss of taste or smell CV - no chest pain Physical Exam Physical Exam: gen - obese, NAD, occasional cough skin - mild pallor heart - RRR, s1 s2, no murmur lungs - mild bibasilar rales, CTA b/l otherwise; no increased work of breathing abd - mildly distended, BS+ but diminished, NT, no HSM ext - trace edema b/l, pulses 2+ b/l Results & Data Results & Data ([facility]) Vital Signs (Past 12 Hours) Vital Signs Temp Pulse Pulse Resp BP BP Pulse Ox 08/13/21 19:24 37.6 C H 94 H 18 100/64 97 08/13/21 16:15 36.6 C 86 18 92/60 L 97 08/13/21 15:50 18 97 08/13/21 14:46 16 96 08/13/21 13:46 16 97 08/13/21 12:44 18 99 08/13/21 12:15 36.5 C 89 18 91/60 L 99 08/13/21 11:48 18 100 08/13/21 10:45 18 100 08/13/21 09:45 18 100 Laboratory Results Laboratory Results - last 24 hr 08/12/21 08/13/21 08/13/21 23:12 06:25 08:28 WBC 7.75 RBC 2.78 L Hgb 9.3 L D Hct 26.8 L MCV 96.4 MCH 33.5 MCHC 34.7 RDW Std Deviation 46.6 H RDW Coeff of [place] 13.3 Plt Count 87 L MPV 10.8 H Immature Gran % (Auto) 0.3 Neut % (Auto) 92.3 Lymph % (Auto) 5.5 [place] % (Auto) 1.8 Eos % (Auto) 0.0 Baso % (Auto) 0.1 Neut # (Auto) 7.15 H Lymph # (Auto) 0.43 L [place] # (Auto) 0.14 Eos # (Auto) 0.00 Baso # (Auto) 0.01 Immature Gran # (Auto) 0.02 Sodium 135 L 135 L Potassium 3.4 L 4.0 D Chloride 104 101 Carbon Dioxide 23 26 Anion Gap 8.0 8.0 BUN 9 13 Creatinine 0.54 L 0.61 Est Cr Clr Drug Dosing 177.2 156.9 Est GFR ( Amer) 145.7 140.0 Est GFR (Non-Af Amer) 125.7 120.8 BUN/Creatinine Ratio 16.0 20.5 H Glucose 113 H 118 H Calcium 7.5 L 7.7 L Total Bilirubin 0.3 0.4 AST 63 H 48 H ALT 41 35 Alkaline Phosphatase 313 H 271 H Troponin I < 0.015 Total Protein 5.1 L 5.1 L Albumin 1.8 L 1.7 L Globulin 3.3 3.4 Albumin/Globulin Ratio 0.5 L 0.5 L PG Care Time/CCT Total # of Minutes Spent Total Time Spent with Patient: Total time spent is greater than 50% in coordination of care (as documented) at patient's floor/unit and/or counseling patient: Coding Level of Care Code 63321 Subseq Hosp Care Lvl 1 Diagnoses Pneumonia due to COVID-19 virus U07.1; J12.82 S/P Z98.891 Thrombocytopenia D69.6 Abnormal LFTs R79.89 DVT prophylaxis Z29.9
[2021-08-14] MEDS ORDERED: SODIUM CHLORIDE 0.9% 1000ML 500 ML IV ONE (00:22)
--- NOTE | 2021-08-14 00:32 | Obstetrical Progress Note ---
Date of Service August 14, 2021 Assessment & Plan Admission and Anticipated Discharge Date Admission Date: August 12, 2021 Subjective Notified by RN that she has contacted medicine team re: pt's vitals showing pulse 90-100s, BPs 90s/50s. O2 saturation 93% room air. Patient is eating/drinking ok. Laureano was removed this afternoon, 400cc urine output since, and had >30cc/hr throughout the day. Scant vaginal lochia, no bleeding from incision. Will obtain stat CBC/CMP to r/o acute volume loss/hemorrhage, give 500cc bolus. However, I think this is more likely related to acute COVID illness and will look to their recommendations as well. Results & Data ([facility]) Vital Signs (Past 12 Hours) Vital Signs Temp Pulse Resp BP BP Pulse Ox 08/13/21 23:30 93 08/13/21 23:22 37.5 C 103 H 18 91/56 L 92 08/13/21 19:24 37.6 C H 94 H 18 100/64 97 08/13/21 16:15 36.6 C 86 18 92/60 L 97 08/13/21 15:50 18 97 08/13/21 14:46 16 96 08/13/21 13:46 16 97 08/13/21 12:44 18 99 PG Care Time/CCT Total # of Minutes Spent Total Time Spent with Patient: Total time spent is greater than 50% in coordination of care (as documented) at patient's floor/unit and/or counseling patient: Coding Level of Care Code None
[2021-08-14 01:07] LABS: Albumin Level 1.5 gm/dl (3.4-5.0); BUN Creatinine Ratio 25.1 (10-20); Calcium 7.5 mg/dl (8.5-10.1); Creatinine Clr Calc Pharmacy 118.2 ml/min; Est GFR (African American) 112.2 ml/min; Est GFR (Non-African American) 96.8 ml/min; Potassium 3.7 mmol/L (3.5-5.1)
[2021-08-14 01:10] LABS: Albumin Globulin Ratio 0.5 (0.9-2); Bilirubin,Total 0.2 mg/dl (0.2-1); Total Protein 4.5 gm/dl (6.4-8.2)
[2021-08-14 01:29] LABS: Hematocrit (blood only) 16.9 % (37-47); Hemoglobin 5.8 g/dL (12.0-16.0); Mean Corpuscular Hemoglobin 33.1 pg (25-34); Mean Corpuscular Hgb Conc 34.3 g/dL (32-36); Mean Corpuscular Volume 96.6 fL (80-100); Mean Platelet Volume 10.6 fL (7.4-10.4); Platelet Count 91 K/uL (130-400); RDW Coefficient of Variation 13.1 % (11.5-14.5); RDW Standard Deviation 46.5 fL (36.4-46.3); Red Blood Count 1.75 M/uL (4.2-5.4)
[2021-08-14] MEDS ORDERED: SODIUM CHLORIDE 0.9% 250 ML IV PRN ×2 (01:34→14:53)
--- NOTE | 2021-08-14 02:05 | Obstetrical Progress Note ---
Date of Service August 14, 2021 Assessment & Plan Admission and Anticipated Discharge Date Admission Date: August 12, 2021 Subjective H/H returned with H/H 5.8/16.9 (down from 9.3/26.8). Platelets slightly better 91. Pain is controlled, she is eating/drinking ok. Passing gas. No nausea/vomiting. Not feeling weak/dizzy. Using O2 by nasal cannula 2L. Physical exam shows patient awake, talking. Abdomen is soft, nondistended, appropriately postop tender, with hypoactive bowel sounds. There is a bruise on anterior pannus. No bruising around incision site. No bruising on back. Scant blood on pad in underwear. SCDs in place, no LE edema. I have ordered blood for transfusion - 2uPRBC to start. Discussed consent with patient. Will also re-draw CBC to be sure this result is accurate, will add coags/fibrinogen to labs. Will obtain abd/pelvic CT with contrast to look for bleeding/hematoma. Physical exam findings do not seem consistent with acute hemorrhage, and at this time I am unsure whether this drop in Hgb is related to recent or if this is related to COVID illness. Even with her thrombocytopenia, given that the recent draw actually shows rising platelets, stable LFTs, and low blood pressure, I do not think this is a preeclampsia/HELLP picture, however will remain vigilant for these also in the event that they arise . Results & Data ([facility]) Vital Signs (Past 12 Hours) Vital Signs Temp Pulse Pulse Resp BP BP Pulse Ox 08/14/21 01:16 92 H 93/52 L 97 08/14/21 01:11 97 08/14/21 00:51 93 H 88 L 08/14/21 00:40 37 C 94 H 20 88 L 08/13/21 23:30 93 08/13/21 23:22 37.5 C 103 H 18 91/56 L 92 08/13/21 19:24 37.6 C H 94 H 18 100/64 97 08/13/21 16:15 36.6 C 86 18 92/60 L 97 08/13/21 15:50 18 97 08/13/21 14:46 16 96 PG Care Time/CCT Total # of Minutes Spent Total Time Spent with Patient: Total time spent is greater than 50% in coordination of care (as documented) at patient's floor/unit and/or counseling patient: Coding Level of Care Code None
[2021-08-14] MEDS: IBUPROFEN 600 MG TAB PO PRN ×3 (02:17→15:39)
[2021-08-14 02:36] LABS: Fibrinogen 294 mg/dl (184-400); Partial Thromboplastin Ratio 1.3; Partial Thromboplastin Time 34.2 Seconds (21.0-31.0); Prothrombin Time 9.7 Seconds (9.0-12.0)
[2021-08-14] MEDS ORDERED: OPTIRAY 320 100ml IV ONE (02:44)
[2021-08-14] MEDS ORDERED: COUGH DROP (SUGAR FREE) LOZ 24 LOZ/1 BOX BUCCAL ONE (04:45)
[2021-08-14] MEDS ORDERED: COUGH DROP (SUGAR FREE) LOZ 24 LOZ/1 BOX BUCCAL PRN (04:52)
--- NOTE | 2021-08-14 04:52 | Obstetrical Progress Note ---
Date of Service August 14, 2021 Assessment & Plan Admission and Anticipated Discharge Date Admission Date: August 12, [address] scan images and discussed the read with night radiologist, Dr Cuenca. There is an anterior abdominal wall hematoma, with a smaller hematoma within the pelvis. In discussion with Dr Cuenca, there was no change in size between the noncontrast vs the contrast scans, which were performed a few minutes apart. Patient's vitals have improved at this point, with 1st unit of PRBC partially infused so far. She is feeling ok, when I came to talk with her she was ambulating from the bathroom back to bed after urinating. I reviewed the CT scan findings with her. We will plan to repeat the CT to evaluate for continued bleeding. The question at this point, is whether she is still actively bleeding into this hematoma. Will continue with the blood transfusion, then repeat the CT, and continue to monitor vitals. Patient expressed her understanding and agreement, and hopes that she can avoid another surgery. Also she is worried that her coughing has worsened this and requesting cough drops. While I do not recommend actively eating/drinking until after the next CT scan, I think it is reasonable to give her a few cough drops. Results & Data ([facility]) Vital Signs (Past 12 Hours) Vital Signs Temp Pulse Pulse Pulse Resp BP BP 08/14/21 04:10 36.7 C 84 18 101/64 08/14/21 03:40 36.8 C 86 18 103/61 08/14/21 03:24 36.8 C 96 H 16 96/58 L 08/14/21 03:07 36.8 C 97 H 18 96/58 L 08/14/21 02:13 36.8 C 20 08/14/21 01:16 92 H 93/52 L 08/14/21 01:11 08/14/21 00:51 93 H 08/14/21 00:40 37 C 94 H 20 08/13/21 23:30 08/13/21 23:22 37.5 C 103 H 18 91/56 L 08/13/21 19:24 37.6 C H 94 H 18 BP Pulse Ox 08/14/21 04:10 94 08/14/21 03:40 96 08/14/21 03:24 98 08/14/21 03:07 97 08/14/21 02:13 83/52 L 92 08/14/21 01:16 97 08/14/21 01:11 97 08/14/21 00:51 88 L 08/14/21 00:40 88 L 08/13/21 23:30 93 08/13/21 23:22 92 08/13/21 19:24 100/64 97 PG Care Time/CCT Total # of Minutes Spent Total Time Spent with Patient: Total time spent is greater than 50% in coordination of care (as documented) at patient's floor/unit and/or counseling patient: Coding Level of Care Code None
--- NOTE | 2021-08-14 05:51 | Communication Note ---
Date of Service: August 14, 2021 Subjective: Nursing notified me that the patient had hypoxia with walking to the bathroom with saturation down to 90% and rebounded to 93%. There had been discussion about starting Steroids but patient had not met criteria and would need to have a conversation about potential risk/benefit in the setting of . Dr. Henriquez notified me that the patients HGB had dropped to the 5's. The patient had required 2L oxygen by the later part of the night due to desaturation into the 80's. Objective: BP: 109/55 HR 78 96% on 2L RR 16 PE General: well appearing Pulm.: CTAB no crackles, no wheezing or abnormal breath sounds appreciated, no increased work of breathing, speaking in full sentences and no accessory muscle use Cardiac: RRR no m/r/g abd.: soft, tender to palpation uterus palpated below the level of the umbilicus, slight guarding A/P: 30 yo F s/p c/s with hypoxia overnight likely driven by blood loss anemia although given COVID infection, may also be playing a role - 2U pRBC transfused overnight - evaluate oxygen requirement after transfusion for possible need to start steroids
[2021-08-14] MEDS ORDERED: OPTIRAY 320 125ml IV ONE (06:39)
--- NOTE | 2021-08-14 09:20 | CT Scan Report ---
CT abdomen pelvis wo/w con CLINICAL HISTORY: Postop Day 2 , drop in Hgb TECHNIQUE: Helical axial images of the abdomen and pelvis were obtained. Automated dose lowering tech niques and/or adjustment according to patient size were utilized for this exam. This exam was perfor med with and without intravenous contrast. COMPARISON: None available at the time of this dictation. FINDINGS: Lower chest: Multifocal groundglass opacities are seen in the lungs bilaterally. Liver: Unremarkable. No focal lesions are seen. Gallbladder and biliary tree: No calcified gallstones. Normal caliber wall. No intra- or extrahepatic biliary ductal dilation. Pancreas: Unremarkable, no focal lesions. Spleen: Unremarkable. Adrenals: Unremarkable. Kidneys and ureters: Unremarkable. Bladder: Bladder is mildly thickened which may be reactive. There is a focus of air in the bladder wh ich may be secondary to recent instrumentation. Reproductive organs: Uterus is enlarged compatible with recent status. Bowel: Unremarkable. Lymph nodes Retroperitoneal: Unremarkable. Mesenteric: Unremarkable. Pelvic: Unremarkable. Peritoneum: Pneumoperitoneum is noted. There is diffuse hyperdense stranding most prominent in the ri ght paracolic gutter and about the kidney and spleen. Vessels: Unremarkable. Abdominal wall: There is a rectus sheath hematoma measuring 4.6 x 6.1 x 8.9 cm in the densest portion . Diffuse thickening is seen elsewhere in the rectus sheath and there is multifocal gas. Bones: Unremarkable. IMPRESSION: 1. Rectus sheath hematoma with intramuscular and subcutaneous emphysema. These are favored to reflec t postsurgical changes, however clinical correlation is recommended to exclude gas-forming infection. Scattered complex ascites and fat stranding is seen in the abdominal cavity. 2. Multifocal groundglass opacities in the lungs may represent pneumonia. 3. Pneumoperitoneum is likely postprocedural. ACT 112: Negative or not required by law. Electronically signed by: Piotr Lopez M.D. 08/14/2021 9:19 AM
[2021-08-14] MEDS: PRENATAL VITAMIN 1 TAB PO SCH (09:28)
[2021-08-14] MEDS: SIMETHICONE 80 MG CHEW PO SCH ×4 (09:28→21:36)
[2021-08-14] MEDS: DOCUSATE SODIUM 100 MG CAP PO SCH ×2 (09:28→21:35)
[2021-08-14] MEDS: FERROUS SULFATE 325 MG TAB PO SCH (09:28)
[2021-08-14] MEDS: guaiFENesin 600 MG TABCR PO SCH ×2 (09:29→21:36)
[2021-08-14] MEDS: oxyCODONE/ACETAMINOPHEN 5mg/325mg TAB PO PRN ×3 (09:30→21:37)
--- NOTE | 2021-08-14 09:57 | CT Scan Report ---
CT angio abdomen pelvis w con CLINICAL HISTORY: compare abd wall hematoma (actively bleeding?) TECHNIQUE: Multidetector row helical CT of the abdomen, pelvis and bilateral lower extremities down t hrough the feet was performed, following intravenous administration of 140 cc of Omnipaque-350. No or al contrast was administered. Coronal and sagittal reformations were obtained. MIP and 3D volume rend ered reconstructions were obtained. Comparison: None available at the time of this dictation. FINDINGS: Lower chest: Multifocal groundglass opacities are again seen in the bilateral lungs. Liver: Unremarkable. No focal lesions are seen. Gallbladder and biliary tree: No calcified gallstones. Normal caliber wall. No intra- or extrahepatic biliary ductal dilation. Pancreas: Unremarkable, no focal lesions. Spleen: Unremarkable. Adrenals: Unremarkable. Kidneys and ureters: Unremarkable. Bladder: Unremarkable. Reproductive organs: Postoperative appearance of the uterus is noted. Bowel: Unremarkable. Lymph nodes Retroperitoneal: Unremarkable. Mesenteric: Unremarkable. Pelvic: Unremarkable. Peritoneum: Redemonstration of scattered hyperdense fluid within the peritoneum. Pneumoperitoneum is again seen. Abdominal wall: Essentially unchanged appearance of rectus sheath hematoma. No evidence of active ext ravasation is seen. Subcutaneous emphysema is again seen. Bones: Unremarkable. CT angiogram: The abdominal aortic contours appear intact without evidence of aneurysmal dilatation a nd/or dissection. No significant atherosclerosis is seen. The origins of the celiac axis, superior mesenteric, inferior mesenteric and bilateral renal arteries are patent. IMPRESSION: 1. Redemonstration of rectus sheath hematoma without evidence of acute arterial extravasation. 2. Redemonstration of diffuse complex ascites. 3. Multifocal groundglass opacities likely representing pneumonia. 4. Additional findings as above. ACT 112: Negative or not required by law. Electronically signed by: Piotr Lopez M.D. 08/14/2021 9:56 AM
--- NOTE | 2021-08-14 10:43 | Hospitalist Progress Note ---
Date of Service August 14, 2021 Assessment & Plan (1) Pneumonia due to COVID-19 virus: Plan: worse clinically today. now hypoxic and requiring NC O2. she is about 6-7 days into her illness and her pneumonia could worsen further over the next few days. will initiate dexamethasone 6mg IV daily - first dose now. also initiate Remdesivir x 5 days; 200mg x 1 now, then 100mg daily starting tomorrow. encouraged side positioning, flutter valve, incentive spirometry, sitting in chair, etc. CRP noted to be >10 - uncertain how much of this elevation is from her COVID infection vs her recent c/s vs other. Repeat in am. Check procalcitonin in am. (2) Abdominal wall hematoma: Plan: Rectus sheath hematoma with resulting acute blood loss anemia. s/p 2 units PRBCs given overnight/this am by OB attending. H/H have improved, but remains mildly hypotensive. Platelets are mildly low but not in range to contribute heavily to bleeding. Coags largely normal. Given ongoing hypotension I spoke again with OB attending and will Tx a 3rd unit of PRBCs. The hematoma should tamponade and H/H should stabilize. Repeat CBC in am. If any worsening - gen surgery consultation?? Stop motrin. Stop toradol. (3) Hyponatremia: Plan: 2nd to hypovolemia in setting of acute blood loss anemia. Repeat BMP am. (4) Hypotension: Plan: 2nd to bleeding as noted above. s/p 3 units PRBCs in total today. (5) Acute blood loss anemia: Plan: 2nd to rectus sheath hematoma. Is there also blood in the ascites fluid? s/p 3 units PRBCS. Trend H/H. Low threshold for repeat CT abd/pelvis if H/H continue to drop. (6) Thrombocytopenia: Plan: Likely 2nd to COVID illness. This is typically self-limiting and resolves within a week or two. There could also be an element of consumption in the setting of her hematoma formation as above. Fortunately the platelets are starting to trend upwards. Repeat CBC am for stability. (7) Abnormal LFTs: Plan: Likely 2nd to COVID illness. Repeat ast/alt in am for stability as well as for monitoring purposes while using Remdesivir. (8) S/P : Plan: POD #2 s/p (9) DVT prophylaxis: Plan: SCDs Chemical DVT proph contraindicated due to the above issues. Plan: Given the complexity of her care Dr Henriquez and I both agreed that patient should be transferred to a negative pressure room on telemetry. Pt's significant other updated at bedside. Admission and Anticipated Discharge Date Admission Date: August 12, 2021 Subjective events of overnight reviewed -- noted to have relative hypotension Hb had dropped to ~5 Tx [address] abd/pelvis obtained - rectus sheath hematoma seen; complex ascites also seen a CTA was obtained - no arterial extravasation was seen on the CTA, and hematoma was unchanged during the night she had O2 sats into the upper 80s NC O2 - 2 liters - applied with improved O2 sats during my rounds she had her O2 off and sats were 90-91% in room air occasional dip to 89% she reports mild HANKS mild cough fatigue mild abdominal pain - no worse than yesterday Review of Systems Review of Systems: gen - no fevers/chills this am; fatigue present; eating ok CV - no chest pain; no orthopnea pulm - cough, congestion; +HANKS GI - no N/V Physical Exam Physical Exam: gen - obese, NAD, looks sick but nontoxic skin - pallor, worse than yesterday; ecchymoses present over lower abdominal wall b/l heart - RRR, s1 s2, no murmur lungs - bibasilar rales - worse today, no increased work of breathing, no wheezing abd - mildly distended (similar to yesterday), BS+ but diminished, NT, no HSM ext - trace edema b/l, pulses 2+ b/l Results & Data Results & Data ([facility]) Vital Signs (Past 12 Hours) Vital Signs Temp Pulse Pulse Pulse Resp BP BP 08/14/21 09:45 36.3 C L 86 18 93/55 L 08/14/21 08:45 36.5 C 99 H 18 102/64 08/14/21 08:15 36.4 C L 69 16 95/58 L 08/14/21 08:00 36.4 C L 70 16 93/57 L 08/14/21 07:45 36.4 C L 72 18 94/59 L 08/14/21 07:42 36.4 C L 72 18 94/59 L 08/14/21 04:10 36.6 C 78 16 109/55 L 08/14/21 03:40 36.8 C 86 18 103/61 08/14/21 03:24 36.8 C 96 H 16 96/58 L 08/14/21 03:07 36.8 C 97 H 18 96/58 L 08/14/21 02:13 36.8 C 20 08/14/21 01:16 92 H 93/52 L 08/14/21 01:11 08/14/21 00:51 93 H 08/14/21 00:40 37 C 94 H 20 08/13/21 23:30 08/13/21 23:22 37.5 C 103 H 18 91/56 L BP Pulse Ox 08/14/21 09:45 94 08/14/21 08:45 94 08/14/21 08:15 96 08/14/21 08:00 95 08/14/21 07:45 96 08/14/21 07:42 96 08/14/21 04:10 96 08/14/21 03:40 96 08/14/21 03:24 98 08/14/21 03:07 97 08/14/21 02:13 83/52 L 92 08/14/21 01:16 97 08/14/21 01:11 97 08/14/21 00:51 88 L 08/14/21 00:40 88 L 08/13/21 23:30 93 08/13/21 23:22 92 Laboratory Results Laboratory Results - last 24 hr 08/12/21 08/14/21 08/14/21 18:43 00:19 00:19 WBC 5.50 RBC 1.75 L Hgb 5.8 L* D Hct 16.9 L* MCV 96.6 MCH 33.1 MCHC 34.3 RDW Std Deviation 46.5 H RDW Coeff of [place] 13.1 Plt Count 91 L MPV 10.6 H Immature Gran % (Auto) Neut % (Auto) Lymph % (Auto) [place] % (Auto) Eos % (Auto) Baso % (Auto) Neut # (Auto) Lymph # (Auto) [place] # (Auto) Eos # (Auto) Baso # (Auto) Immature Gran # (Auto) PT INR APTT PTT Ratio Fibrinogen Sodium 130 L Potassium 3.7 Chloride 97 L Carbon Dioxide 26 Anion Gap 7.0 BUN 20 H D Creatinine 0.81 Est Cr Clr Drug Dosing 118.2 Est GFR ( Amer) 112.2 Est GFR (Non-Af Amer) 96.8 BUN/Creatinine Ratio 25.1 H Glucose 106 H Calcium 7.5 L Total Bilirubin 0.2 AST 44 H ALT 31 Alkaline Phosphatase 187 H D Lactate Dehydrogenase C-Reactive Protein Total Protein 4.5 L Albumin 1.5 L Globulin 3.0 Albumin/Globulin Ratio 0.5 L Blood Type A Positive Antibody Screen NEGATIVE Crossmatch See Detail 08/14/21 08/14/21 08/14/21 01:39 01:39 10:59 WBC 5.10 RBC 2.50 L Hgb 8.0 L Hct 23.2 L MCV 92.8 MCH 32.0 MCHC 34.5 RDW Std Deviation 47.9 H RDW Coeff of [place] 14.1 Plt Count 88 L MPV 10.8 H Immature Gran % (Auto) 0.6 Neut % (Auto) 88.4 Lymph % (Auto) 8.4 [place] % (Auto) 2.2 Eos % (Auto) 0.0 Baso % (Auto) 0.4 Neut # (Auto) 4.51 Lymph # (Auto) 0.43 L [place] # (Auto) 0.11 Eos # (Auto) 0.00 Baso # (Auto) 0.02 Immature Gran # (Auto) 0.03 H PT 9.7 INR 1.0 APTT 34.2 H PTT Ratio 1.3 Fibrinogen 294 Sodium Potassium Chloride Carbon Dioxide Anion Gap BUN Creatinine Est Cr Clr Drug Dosing Est GFR ( Amer) Est GFR (Non-Af Amer) BUN/Creatinine Ratio Glucose Calcium Total Bilirubin AST ALT Alkaline Phosphatase Lactate Dehydrogenase 333 H C-Reactive Protein Total Protein Albumin Globulin Albumin/Globulin Ratio Blood Type Antibody Screen Crossmatch 08/14/21 08/14/21 10:59 18:05 WBC RBC Hgb 8.9 L Hct 26.0 L MCV MCH MCHC RDW Std Deviation RDW Coeff of [place] Plt Count MPV Immature Gran % (Auto) Neut % (Auto) Lymph % (Auto) [place] % (Auto) Eos % (Auto) Baso % (Auto) Neut # (Auto) Lymph # (Auto) [place] # (Auto) Eos # (Auto) Baso # (Auto) Immature Gran # (Auto) PT INR APTT PTT Ratio Fibrinogen Sodium 132 L Potassium 3.8 Chloride 102 Carbon Dioxide 26 Anion Gap 4.0 BUN 15 Creatinine 0.65 Est Cr Clr Drug Dosing 147.2 Est GFR ( Amer) 137.1 Est GFR (Non-Af Amer) 118.3 BUN/Creatinine Ratio 23.2 H Glucose 107 H Calcium 8.1 L Total Bilirubin 0.4 AST 49 H ALT 34 Alkaline Phosphatase 187 H Lactate Dehydrogenase C-Reactive Protein 13.40 H Total Protein 4.9 L Albumin 1.6 L Globulin 3.3 Albumin/Globulin Ratio 0.5 L Blood Type Antibody Screen Crossmatch Diagnostic Findings Abdomen/Pelvis CT 08/14/21 01:59 CT abdomen pelvis wo/w con CLINICAL HISTORY: Postop Day 2 , drop in Hgb TECHNIQUE: Helical axial images of the abdomen and pelvis were obtained. Automated dose lowering techniques and/or adjustment according to patient size were utilized for this exam. This exam was performed with and without intravenous contrast. COMPARISON: None available at the time of this dictation. FINDINGS: Lower chest: Multifocal groundglass opacities are seen in the lungs bilaterally. Liver: Unremarkable. No focal lesions are seen. Gallbladder and biliary tree: No calcified gallstones. Normal caliber wall. No intra- or extrahepatic biliary ductal dilation. Pancreas: Unremarkable, no focal lesions. Spleen: Unremarkable. Adrenals: Unremarkable. Kidneys and ureters: Unremarkable. Bladder: Bladder is mildly thickened which may be reactive. There is a focus of air in the bladder which may be secondary to recent instrumentation. Reproductive organs: Uterus is enlarged compatible with recent status. Bowel: Unremarkable. Lymph nodes Retroperitoneal: Unremarkable. Mesenteric: Unremarkable. Pelvic: Unremarkable. Peritoneum: Pneumoperitoneum is noted. There is diffuse hyperdense stranding most prominent in the right paracolic gutter and about the kidney and spleen. Vessels: Unremarkable. Abdominal wall: There is a rectus sheath hematoma measuring 4.6 x 6.1 x 8.9 cm in the densest portion. Diffuse thickening is seen elsewhere in the rectus sheath and there is multifocal gas. Bones: Unremarkable. IMPRESSION: 1. Rectus sheath hematoma with intramuscular and subcutaneous emphysema. These are favored to reflect postsurgical changes, however clinical correlation is recommended to exclude gas-forming infection. Scattered complex ascites and fat stranding is seen in the abdominal cavity. 2. Multifocal groundglass opacities in the lungs may represent pneumonia. 3. Pneumoperitoneum is likely postprocedural. ACT 112: Negative or not required by law. Electronically signed by: Piotr Lopez M.D. 08/14/2021 9:19 AM Abdomen/Pelvis CTA 08/14/21 04:18 CT angio abdomen pelvis w con CLINICAL HISTORY: compare abd wall hematoma (actively bleeding?) TECHNIQUE: Multidetector row helical CT of the abdomen, pelvis and bilateral lower extremities down through the feet was performed, following intravenous administration of 140 cc of Omnipaque-350. No oral contrast was administered. Coronal and sagittal reformations were obtained. MIP and 3D volume rendered reconstructions were obtained. Comparison: None available at the time of this dictation. FINDINGS: Lower chest: Multifocal groundglass opacities are again seen in the bilateral lungs. Liver: Unremarkable. No focal lesions are seen. Gallbladder and biliary tree: No calcified gallstones. Normal caliber wall. No intra- or extrahepatic biliary ductal dilation. Pancreas: Unremarkable, no focal lesions. Spleen: Unremarkable. Adrenals: Unremarkable. Kidneys and ureters: Unremarkable. Bladder: Unremarkable. Reproductive organs: Postoperative appearance of the uterus is noted. Bowel: Unremarkable. Lymph nodes Retroperitoneal: Unremarkable. Mesenteric: Unremarkable. Pelvic: Unremarkable. Peritoneum: Redemonstration of scattered hyperdense fluid within the peritoneum. Pneumoperitoneum is again seen. Abdominal wall: Essentially unchanged appearance of rectus sheath hematoma. No evidence of active extravasation is seen. Subcutaneous emphysema is again seen. Bones: Unremarkable. CT angiogram: The abdominal aortic contours appear intact without evidence of aneurysmal dilatation and/or dissection. No significant atherosclerosis is seen. The origins of the celiac axis, superior mesenteric, inferior mesenteric and bilateral renal arteries are patent. IMPRESSION: 1. Redemonstration of rectus sheath hematoma without evidence of acute arterial extravasation. 2. Redemonstration of diffuse complex ascites. 3. Multifocal groundglass opacities likely representing pneumonia. 4. Additional findings as above. ACT 112: Negative or not required by law. Electronically signed by: Piotr Lopez M.D. 08/14/2021 9:56 AM PG Care Time/CCT Total # of Minutes Spent Total Time Spent with Patient: Total time spent is greater than 50% in coordination of care (as documented) at patient's floor/unit and/or counseling patient: Coding Level of Care Code 13690 Subseq Hosp Care Lvl 3 Diagnoses Pneumonia due to COVID-19 virus U07.1; J12.82 S/P Z98.891 Thrombocytopenia D69.6 Abnormal LFTs R79.89 DVT prophylaxis Z29.9 Abdominal wall hematoma S30.1XXA Hyponatremia E87.1 Hypotension I95.9 Acute blood loss anemia D62
[2021-08-14] MEDS ORDERED: REMDESIVIR 200 MG in SODIUM CHLORIDE 0.9% 210 ML IV ONE (11:00)
[2021-08-14 11:10] LABS: Hematocrit (blood only) 23.2 % (37-47); Mean Corpuscular Hgb Conc 34.5 g/dL (32-36); Mean Corpuscular Volume 92.8 fL (80-100); RDW Coefficient of Variation 14.1 % (11.5-14.5); RDW Standard Deviation 47.9 fL (36.4-46.3)
[2021-08-14 11:26] LABS: Albumin Level 1.6 gm/dl (3.4-5.0); Calcium 8.1 mg/dl (8.5-10.1); Potassium 3.8 mmol/L (3.5-5.1)
[2021-08-14] MEDS: dexAMETHasone 6 MG in SYRINGE 0 ML IV SCH (11:36)
[2021-08-14 11:37] LABS: Albumin Globulin Ratio 0.5 (0.9-2); BUN Creatinine Ratio 23.2 (10-20); Bilirubin,Total 0.4 mg/dl (0.2-1); C Reactive Protein 13.4 mg/dl (0-0.29); Creatinine Clr Calc Pharmacy 147.2 ml/min; Est GFR (African American) 137.1 ml/min; Est GFR (Non-African American) 118.3 ml/min; Globulin 3.3 gm/dl (2.5-4.0); Total Protein 4.9 gm/dl (6.4-8.2)
[2021-08-14 11:46] LABS: Basophils # (auto) 0.02 K/uL (0-0.2); Basophils % (auto) 0.4 %; Immature Granulocytes # (auto) 0.03 K/uL (0.00-0.02); Immature Granulocytes % (auto) 0.6 %; Lymphocytes # (auto) 0.43 K/uL (1.2-3.4); Lymphocytes % (auto) 8.4 %; Mean Platelet Volume 10.8 fL (7.4-10.4); Monocytes # (auto) 0.11 K/uL (0.11-0.59); Monocytes % (auto) 2.2 %; Neutrophils # (auto) 4.51 K/uL (1.4-6.5); Neutrophils % (auto) 88.4 %; Platelet Count 88 K/uL (130-400)
[2021-08-14] MEDS: SODIUM CHLORIDE 0.9% 10ML FLUSH IV SCH (12:00)
[2021-08-14] MEDS: SODIUM CHLORIDE 0.9% 1000ML 1,000 ML IV SCH ×2 (12:07→20:39)
--- NOTE | 2021-08-14 13:16 | Obstetrical Progress Note ---
Date of Service August 14, 2021 Assessment & Plan (1) S/P : POD#2 s/p - doing well with pain control, ambulation, lochia - continue SCDs for DVT prophylaxis Abdominal wall hematoma - stable on CT - is now s/p 2u PRBC 08/14/21, Hgb improved. Will recheck H/H at 6p tonight and then again with routine labs in AM. - discussed with patient that we will continue to monitor, however expect this to slowly resolve over 10-14d COVID-19 pneumonia - appreciate management by hospitalist team - discussed with patient with remdesivir and steroids - while there is not a large body of data on remdesivir and , since this med is given to babies, unlikely for complications. (2) Abdominal wall hematoma: Subjective Ambulation: ambulating normally Voiding: no voiding problems Diet Tolerance:: regular diet Lochia:: Moderate POD#2 s/p primary section at 35w secondary to oligohydramnios. She is feeling tired, but otherwise ok today. Pain controlled. Eating/drinking ok. Scant lochia. Passing gas, no bowel movement yet. Trying to breastfeed. Overnight, had Hgb drop to 5.8 with drop in BP with elevated HR. CT abd/pelvis showed rectus sheath hematoma. Repeat CT angiogram showed no growth of hematoma, it was similar size. Patient rec'd 2u PRBC and Hgb improved to 8.0. HR improved, although BP remains low. Patient is feeling better after transfusion. Review of Systems All systems reviewed & are unremarkable except as noted in HPI & below Physical Exam Constitutional WD/WN, vitals as above no acute distress Respiratory normal respiratory effort on 2L nasal cannula O2 Cardiovascular Rate/Rhythm: regular rate and regular rhythm Gastrointestinal (Abdomen) Inspection/Auscultation: + abdominal wall ecchymosis; abdomen not distended Percussion/Palpation: abdomen soft There is bruising of lower pannus, worse on anterior left side, but now extended across anterior pannus. The incision is clean/dry/intact. : Scant lochia Genitourinary OB Exam Abdomen: + fundal height Fundus: + firm; not tender Results & Data ([facility]) Vital Signs (Past 12 Hours) Vital Signs Temp Pulse Pulse Pulse Pulse Resp BP 08/14/21 11:30 36.3 C L 78 18 08/14/21 09:45 36.3 C L 86 18 93/55 L 08/14/21 08:45 36.5 C 99 H 18 102/64 08/14/21 08:15 36.4 C L 69 16 95/58 L 08/14/21 08:00 36.4 C L 70 16 93/57 L 08/14/21 07:45 36.4 C L 72 18 94/59 L 08/14/21 07:42 36.4 C L 72 18 94/59 L 08/14/21 04:10 36.6 C 78 16 109/55 L 08/14/21 03:40 36.8 C 86 18 103/61 08/14/21 03:24 36.8 C 96 H 16 96/58 L 08/14/21 03:07 36.8 C 97 H 18 96/58 L 08/14/21 02:13 36.8 C 20 08/14/21 01:16 92 H 08/14/21 01:11 08/14/21 00:51 93 H BP BP Pulse Ox 08/14/21 11:30 92/58 L 95 08/14/21 09:45 94 08/14/21 08:45 94 08/14/21 08:15 96 08/14/21 08:00 95 08/14/21 07:45 96 08/14/21 07:42 96 08/14/21 04:10 96 08/14/21 03:40 96 08/14/21 03:24 98 08/14/21 03:07 97 08/14/21 02:13 83/52 L 92 08/14/21 01:16 93/52 L 97 08/14/21 01:11 97 08/14/21 00:51 88 L
[2021-08-14 18:12] LABS: Hemoglobin 8.9 g/dL (12.0-16.0)
[2021-08-14] MEDS: LACTATED RINGER'S 1,000 ML IV SCH ×3 (19:29→19:31)
[2021-08-14] MEDS: OXYTOCIN 20 UNITS in LACTATED RINGER'S 1,000 ML IV SCH ×2 (19:30→19:31)
[2021-08-14] MEDS ORDERED: bisacodyL 10 MG SUPP PR PRN (21:49)
[2021-08-15] MEDS: oxyCODONE/ACETAMINOPHEN 5mg/325mg TAB PO PRN ×3 (02:48→17:34)
--- NOTE | 2021-08-15 06:32 | Obstetrical Progress Note ---
Date of Service August 15, 2021 Assessment & Plan (1) Encounter for care and examination after delivery: Plan: 30yo POD 3 s/p LTCS at 35 weeks 5 days complicated by oligohydramnios, IUGR, persistent category 2 tracing. Post op pneumonia due to COVID and abdominal sheath hematoma. 1) Pneumonia due to COVID -tested positive on 08/10, presented with cough and decreased O2 sat; patient feels much improved today -O2 sat 94 2L NC, stable -cont. remdesivir, dexamethasone -following with hospital team 2) Rectus sheath hematoma -likely due to complications of versus COVID -3 units PRBCs given (08/14), Hgb post transfusion 8.9 (08/14), BP and pulse stable WNL -Hgb (08/15) pending -NSAIDs held 3) care -Continue routine care -Vitals reviewed- afebrile -GBS neg -Encourage ambulation, regular diet -Pain control with Percocet. NSAIDS held. -F/u in 6 weeks with OB after discharge (2) S/P : (3) Pneumonia due to COVID-19 virus: Admission and Anticipated Discharge Date Admission Date: August 12, 2021 Supervising Physician Co-Signing Physician Notes Resident Physician Supervision Note: I interviewed and examined the patient. Discussed with Dr. Ramirez and agree with findings and plan as documented in the note. Any exceptions or clarifications are listed here: POD#3 s/p section. Feeling much better today. Ambulating in room back and forth to bathroom, is doing well with this. States she feels like chest/breathing is more clear today than yesterday. From OB standpoint, rectus sheath hematoma is stable and at this point, will expect this to slowly reabsorb. She is meeting all OB milestones - ambulating, eating/drinking, minimal vaginal bleeding, , incision healing well. Appreciate COVID management per hospitalist team. Documented By: Joi Henriquez, Subjective Ambulation: yes Voiding: yes Passing Gas: yes BM: not yet Diet Tolerance: regular Lochia: small Feeding Type: , feels dry right now Current Pain Level(1-10): 5, abd/pelvis pain when coughing Review of Systems Review of Systems: Denies fevers/chills. +mild SOB on ambulation, +cough Denies chest pain. Denies breast pain or discharge. Denies dysuria. Denies headache. Denies back pain. Denies nausea, vomiting. Physical Exam Physical Exam: General: obese, AOx3, mild distress Cardiac: Regular rate and rhythm, normal S1, S2. No murmurs appreciated. Respiratory: Clear to auscultation, symmetric chest rise and fall. No wheezes. Mild bibasilar rales. No increased work of breathing or accessory muscle use. Abdomen: Soft, nontender.. Fundus firm and palpable at 2 cm below umbilicus. No guarding or rebound. Skin: stable rectus sheath hematoma spanning across lower abdominal wall, mildly tender to deep palpation. Extremities: Warm, dry. No lower extremity edema, erythema or swelling. Results & Data ([facility]) Vital Signs (Past 12 Hours) Vital Signs Temp Pulse Pulse Resp BP BP Pulse Ox 08/15/21 03:30 36.7 C 86 18 107/61 94 08/14/21 23:08 36.6 C 69 20 116/69 97 08/14/21 22:19 78 08/14/21 19:43 36.8 C 96 H 18 109/65 96 08/14/21 18:33 100 H Resident Activity Tracking Resident Involvement: Resident Care Provided Care Provided: OB Delivery
[2021-08-15 07:50] LABS: Hemoglobin 8.9 g/dL (12.0-16.0); Mean Corpuscular Hemoglobin 31.1 pg (25-34); Mean Corpuscular Volume 94.4 fL (80-100); Mean Platelet Volume 10.7 fL (7.4-10.4); Platelet Count 147 K/uL (130-400); RDW Coefficient of Variation 15.4 % (11.5-14.5); RDW Standard Deviation 53.1 fL (36.4-46.3); Red Blood Count 2.86 M/uL (4.2-5.4); White Blood Count 5.05 K/uL (4.8-10.8)
[2021-08-15 07:59] LABS: BUN Creatinine Ratio 19.8 (10-20); C Reactive Protein 14.6 mg/dl (0-0.29); Calcium 8.5 mg/dl (8.5-10.1); Creatinine Clr Calc Pharmacy 131.2 ml/min; Est GFR (African American) 129.3 ml/min; Est GFR (Non-African American) 111.6 ml/min
[2021-08-15] MEDS: PRENATAL VITAMIN 1 TAB PO SCH (08:41)
[2021-08-15] MEDS: FERROUS SULFATE 325 MG TAB PO SCH (08:42)
[2021-08-15] MEDS: guaiFENesin 600 MG TABCR PO SCH ×2 (08:43→20:58)
[2021-08-15] MEDS: SIMETHICONE 80 MG CHEW PO SCH ×4 (08:44→20:58)
[2021-08-15] MEDS: dexAMETHasone 6 MG in SYRINGE 0 ML IV SCH (08:46)
[2021-08-15] MEDS: DOCUSATE SODIUM 100 MG CAP PO SCH ×2 (08:46→20:59)
[2021-08-15] MEDS: REMDESIVIR 100 MG in SODIUM CHLORIDE 0.9% 230 ML IV SCH (12:29)
[2021-08-15] MEDS: SODIUM CHLORIDE 0.9% 10ML FLUSH IV SCH (12:32)
[2021-08-15 16:21] LABS: Hematocrit (blood only) 26.4 % (37-47); Hemoglobin 8.8 g/dL (12.0-16.0)
--- NOTE | 2021-08-15 17:24 | Hospitalist Progress Note ---
Date of Service August 15, 2021 Assessment & Plan (1) Pneumonia due to COVID-19 virus: Plan: Improved today. NC O2 weaned off to room air this am. She is about 7-8 days into her illness and her pneumonia could worsen still given where she is in her illness course as well as the elevated CRP. Cont dexamethasone 6mg IV daily - day #2. Cont Remdesivir x 5 days; day #2 today. Cont side positioning, flutter valve, incentive spirometry, sitting in chair, etc. CRP still noted to be >10 - uncertain how much of this elevation is from her COVID infection vs her recent c/s vs other. [id number] CRP is high conferring higher risk of progression of disease. But fortunately that has not happened overnight Procal noted to be negative. Watch overnight. Cont to monitor. (2) Abdominal wall hematoma: Plan: Rectus sheath hematoma with resulting acute blood loss anemia. s/p 3 units PRBCs this admission. Repeat H/H this evening unchanged from AM labs suggesting stability and no ongoing bleeding. Supportive care Repeat CBC am (3) Hyponatremia: Plan: 2nd to hypovolemia in setting of acute blood loss anemia. Resolved. Repeat BMP am. (4) Hypotension: Plan: 2nd to bleeding as noted above. s/p 3 units PRBCs in total with resolution of hypotension. (5) Acute blood loss anemia: Plan: 2nd to rectus sheath hematoma. Is there also blood in the ascites fluid? s/p 3 units PRBCS. Repeat H/H this evening stable. Check cbc am. (6) Thrombocytopenia: Plan: Likely 2nd to COVID illness. There could also be an element of consumption in the setting of her hematoma formation as above. Fortunately the platelets are now normal. Repeat CBC am for stability. (7) Abnormal LFTs: Plan: Likely 2nd to COVID illness. Repeat ast/alt in am for stability as well as for monitoring purposes while using Remdesivir. (8) S/P : Plan: POD #3 s/p daughter tested + for COVID but thus far is doing well (9) DVT prophylaxis: Plan: SCDs Chemical DVT proph contraindicated due to the above issues. Plan: Cont to monitor overnight may need 2-step at d/c Admission and Anticipated Discharge Date Admission Date: August 12, 2021 Subjective tele overnight wnl pt reports feeling better on all levels - cough remains, dyspnea on exertion remains - but no worse than yesterday energy a bit better eating well abd pain is stable No nausea/emesis passing flatus no loss of taste/smell staff able to wean NC O2 off this am patient reports her daughter is doing well Review of Systems Review of Systems: gen - no fevers/chills CV - no pleuritic cp pulm - no sputum GI - no nausea or emesis Physical Exam Physical Exam: gen - obese, NAD, sitting in chair feeding her daughter; looks better today skin - mild pallor; ecchymoses present over lower abdominal wall b/l mouth - MMM heart - RRR, s1 s2, no murmur lungs - bibasilar rales - similar to yesterday; no wheeze; no increased work of breathing abd - softer today, BS+, NT, no HSM ext - trace edema b/l, pulses 2+ b/l Results & Data Results & Data ([facility]) Vital Signs (Past 12 Hours) Vital Signs Temp Pulse Pulse Resp BP Pulse Ox 08/15/21 15:48 36.4 C L 70 20 117/74 96 08/15/21 11:32 36.5 C 71 18 106/73 94 08/15/21 10:30 92 08/15/21 09:50 93 08/15/21 08:19 36.6 C 70 18 102/61 96 08/15/21 08:00 76 Laboratory Results Laboratory Results - last 24 hr 08/12/21 08/14/21 08/15/21 18:43 18:05 07:20 WBC 5.05 RBC 2.86 L Hgb 8.9 L 8.9 L Hct 26.0 L 27.0 L MCV 94.4 MCH 31.1 MCHC 33.0 RDW Std Deviation 53.1 H RDW Coeff of [place] 15.4 H Plt Count 147 D MPV 10.7 H Sodium Potassium Chloride Carbon Dioxide Anion Gap BUN Creatinine Est Cr Clr Drug Dosing Est GFR ( Amer) Est GFR (Non-Af Amer) BUN/Creatinine Ratio Glucose Calcium C-Reactive Protein Procalcitonin Crossmatch See Detail 08/15/21 08/15/21 08/15/21 07:20 07:20 16:08 WBC RBC Hgb 8.8 L Hct 26.4 L MCV MCH MCHC RDW Std Deviation RDW Coeff of [place] Plt Count MPV Sodium 138 Potassium 4.0 Chloride 107 Carbon Dioxide 25 Anion Gap 6.0 BUN 14 Creatinine 0.72 Est Cr Clr Drug Dosing 131.2 Est GFR ( Amer) 129.3 Est GFR (Non-Af Amer) 111.6 BUN/Creatinine Ratio 19.8 Glucose 96 Calcium 8.5 C-Reactive Protein 14.60 H Procalcitonin 0.23 Crossmatch PG Care Time/CCT Total # of Minutes Spent Total Time Spent with Patient: Total time spent is greater than 50% in coordination of care (as documented) at patient's floor/unit and/or counseling patient: Coding Level of Care Code 96740 Subseq Hosp Care Lvl 3 Diagnoses Pneumonia due to COVID-19 virus U07.1; J12.82 Abdominal wall hematoma S30.1XXA Hyponatremia E87.1 Hypotension I95.9 Acute blood loss anemia D62 Thrombocytopenia D69.6 Abnormal LFTs R79.89 S/P Z98.891 DVT prophylaxis Z29.9
[2021-08-16] MEDS: oxyCODONE/ACETAMINOPHEN 5mg/325mg TAB PO PRN ×3 (00:47→14:54)
[2021-08-16] MEDS: dexAMETHasone 6 MG in SYRINGE 0 ML IV SCH (07:39)
[2021-08-16] MEDS: guaiFENesin 600 MG TABCR PO SCH (07:40)
[2021-08-16] MEDS: SIMETHICONE 80 MG CHEW PO SCH ×2 (07:40→13:39)
[2021-08-16] MEDS: FERROUS SULFATE 325 MG TAB PO SCH (07:41)
[2021-08-16] MEDS: PRENATAL VITAMIN 1 TAB PO SCH (07:41)
[2021-08-16] MEDS: DOCUSATE SODIUM 100 MG CAP PO SCH (07:44)
[2021-08-16 08:28] LABS: Hematocrit (blood only) 26.8 % (37-47); Mean Corpuscular Hemoglobin 31.5 pg (25-34); Mean Corpuscular Hgb Conc 33.6 g/dL (32-36); Mean Corpuscular Volume 93.7 fL (80-100); Mean Platelet Volume 10.1 fL (7.4-10.4); Platelet Count 168 K/uL (130-400); RDW Coefficient of Variation 15.4 % (11.5-14.5); RDW Standard Deviation 52.9 fL (36.4-46.3); Red Blood Count 2.86 M/uL (4.2-5.4)
--- NOTE | 2021-08-16 08:32 | Obstetrical Progress Note ---
Date of Service August 16, 2021 Assessment & Plan (1) Encounter for care and examination after delivery: Plan: 30yo POD 4 s/p LTCS at 35 weeks 5 days complicated by oligohydramnios, IUGR, persistent category 2 tracing. Post op pneumonia due to COVID and abdominal sheath hematoma. 1) Pneumonia due to COVID -tested positive on 08/10, presented with cough and decreased O2 sat; patient feels much improved today -O2 sat 96 RA, stable -cont. remdesivir, dexamethasone -following with hospital team -likely discharge today 2) Rectus sheath hematoma -likely due to complications of versus COVID -3 units PRBCs given (08/14), Hgb post transfusion 8.9 (08/14), BP and pulse stable WNL -Hgb 9.0, stable -NSAIDs held 3) care -Continue routine care -Vitals reviewed- afebrile -GBS neg -Encourage ambulation, regular diet -Pain control with Percocet. NSAIDS held. -F/u in 6 weeks with OB after discharge (2) S/P : (3) Pneumonia due to COVID-19 virus: Admission and Anticipated Discharge Date Admission Date: August 12, 2021 Supervising Physician Co-Signing Physician Notes Resident Physician Supervision Note: I was present with Dr. Ramirez during the history and exam. I discussed the case with the resident and agree with the findings and plan as documented in the note. Any exceptions or clarifications are listed here: [None] Documented By: Belinda Stroud MD, FACOG Subjective Ambulation: yes Voiding: yes Passing Gas: yes BM: yes Diet Tolerance: regular Lochia: small Feeding Type: Current Pain Level(1-10): 4, abd/pelvis pain when coughing Review of Systems Review of Systems: Denies fevers/chills. +mild SOB on ambulation, +mild cough Denies chest pain. Denies breast pain or discharge. Denies dysuria. Denies headache. Denies back pain. Denies nausea, vomiting. Physical Exam Physical Exam: General: obese, AOx3, mild distress Cardiac: Regular rate and rhythm, normal S1, S2. No murmurs appreciated. Respiratory: Clear to auscultation, symmetric chest rise and fall. No wheezes. M ild bibasilar rales, improving. No increased work of breathing or accessory muscle use. Abdomen: Soft, nontender. Fundus firm and palpable at 2 cm below umbilicus. No guarding or rebound. Skin: stable rectus sheath hematoma spanning across lower abdominal wall, mildly tender to deep palpation but less so than yesterday. Extremities: Warm, dry. No lower extremity edema, erythema or swelling. Results & Data ([facility]) Vital Signs (Past 12 Hours) Vital Signs Temp Pulse Pulse Pulse Resp BP Pulse Ox 08/16/21 07:30 36.5 C 61 20 109/68 96 08/16/21 04:59 36.5 C 62 18 111/65 94 08/15/21 23:50 36.4 C L 64 18 126/86 94 08/15/21 23:33 66 Resident Activity Tracking Resident Involvement: Resident Care Provided Care Provided: OB Delivery
[2021-08-16 08:54] LABS: BUN Creatinine Ratio 23.6 (10-20); Calcium 8.5 mg/dl (8.5-10.1); Creatinine Clr Calc Pharmacy 125.7 ml/min; Est GFR (African American) 121.1 ml/min; Est GFR (Non-African American) 104.5 ml/min; Potassium 3.7 mmol/L (3.5-5.1)
[2021-08-16 08:55] LABS: C Reactive Protein 6.89 mg/dl (0-0.29)
[2021-08-16] MEDS: SODIUM CHLORIDE 0.9% 10ML FLUSH IV SCH (11:31)
[2021-08-16] MEDS: REMDESIVIR 100 MG in SODIUM CHLORIDE 0.9% 230 ML IV SCH (11:31)
--- NOTE | 2021-08-18 21:45 | Discharge Summary (DS) ---
DATE OF ADMISSION: 08/12/2021. DATE OF DISCHARGE: 08/16/2021. HOSPITAL COURSE: The patient was admitted initially for evaluation of IUGR with a new finding of venkat gomenorrhea. In the evaluation process, the was noted to have persistent category 2 tracing without response to resuscitation measures. The decision was to proceed with a primary low transvers e section secondary to nonreassuring testing/ distress. A primary low transverse section was then performed without difficulty. Of note, the patient was COVID positive and symptomatic at the time of admission and COVID precautions were followed throughout the course. The p atient remained in-house until postoperative day #4. Course was complicated by a rectus sheath hemat jose a diagnosed on postoperative day #2. The patient did receive 3 units of packed red blood cells ass ociated with this rectus sheath hematoma. The patient was noted to have stable blood counts prior to discharge and was discharged home with both written and verbal instructions. The patient was stable for discharge at the time of being discharged. Please see additional notes for further details. Job ID: [id number]
== END 2021-08-16 15:56 | disposition home or self-care (01) | DRG 786 ==
LOC: OPB 16:17 → 4W 16:19 → 4N 08-13 01:43 → 2N 08-14 17:20
DX: Z87.891 Personal history of nicotine dependence; M79.81 Nontraumatic hematoma of soft tissue; D69.59 Other secondary thrombocytopenia; Y92.239 Unspecified place in hospital as the place of occurrence of the external cause; R79.89 Other specified abnormal findings of blood chemistry; Z79.899 Other long term (current) drug therapy; Z3A.35 35 weeks gestation of pregnancy; O98.52 Other viral diseases complicating childbirth; U07.1 COVID-19; O26.893 Other specified pregnancy related conditions, third trimester; O36.5930 Maternal care for other known or suspected poor fetal growth, third trimester, not applicable or unspecified; Y83.8 Other surgical procedures as the cause of abnormal reaction of the patient, or of later complication, without mention of misadventure at the time of the procedure; N91.5 Oligomenorrhea, unspecified; O36.8330 Maternal care for abnormalities of the fetal heart rate or rhythm, third trimester, not applicable or unspecified; E87.1 Hypo-osmolality and hyponatremia; O99.52 Diseases of the respiratory system complicating childbirth; O90.2 Hematoma of obstetric wound; J12.82 Pneumonia due to coronavirus disease 2019; O99.12 Other diseases of the blood and blood-forming organs and certain disorders involving the immune mechanism complicating childbirth; O99.03 Anemia complicating the puerperium; O41.03X0 Oligohydramnios, third trimester, not applicable or unspecified; Z37.0 Single live birth; R09.02 Hypoxemia; O99.285 Endocrine, nutritional and metabolic diseases complicating the puerperium; D62 Acute posthemorrhagic anemia